=== PATIENT | female | born 1985 | race American Indian/Alaskan Native ===

== ENCOUNTER 2018-04-15 03:09 | Emergency (ER) | payer MEDICAID, SELFPAY ==
[2018-04-15 03:20] VITALS: BP 120/77; PULSE 80; RESP 18; TEMP 36.2; O2SAT 99; BMI 29.0
--- NOTE | 2018-04-15 03:27 | ED_ITS ---
HPI - Dental/Oral General Chief complaint: Dental/Oral Stated complaint: left top molar pain Time Seen by Provider: 04/15/18 03:19 Source: patient Mode of arrival: ambulatory Limitations: no limitations History of Present Illness HPI Narrative: Patient is a 33-year-old female who presents with left upper molar dental pain and swelling. She says the swelling started today but he has had pain for about a day and half. No fevers or chills. She says the tooth was cracked about 2013. She is also seeing a dentist about her weight teeth she unfortunately cannot get into her dentist until next week. MD Complaint: tooth pain 2 1. Pain 2. Extra tooth Relieving factors: nothing Exacerbating factors: nothing Related Data Home Medications Medication Instructions Recorded Confirmed levetiracetam 250 mg BID 04/15/18 04/15/18 Previous Rx's Medication Instructions Recorded clindamycin HCl 300 mg PO TID #21 cap 04/15/18 Allergies Allergy/AdvReac Type Severity Reaction Status Date / Time BEE,BUMBLE Allergy Unknown SWELLING Uncoded 07/22/17 12:55 Penicillin Allergy Unknown Uncoded 07/22/17 12:55 Review of Systems Review of Systems GENERAL: Denies chills,fever HEENT: See HPI RESPIRATORY: Denies dyspnea, cough, wheezing CARDIOVASCULAR: Denies chest pain, palpitations GASTROINTESTINAL: Denies nausea, vomiting MUSCULOSKELETAL: Denies extremity pain, injury SKIN: No rash, no laceration, no pruritus NEUROLOGIC: Denies weakness, dizziness, headache, numbness 8 point review of systems is negative except for those stated above and HPI PFSH Surgical History Status post appendectomy Status post tonsillectomy and adenoidectomy Social History Smoking Status: Never smoker Exam Initial Vital Signs Initial Vital Signs: Vital Signs Temperature 97.2 F L 04/15/18 03:20 Pulse Rate 80 04/15/18 03:20 Respiratory Rate 18 04/15/18 03:20 Blood Pressure 120/77 04/15/18 03:20 Pulse Oximetry 99 04/15/18 03:20 GENERAL: Well-appearing, well-nourished and in no acute distress. CARDIOVASCULAR: peripheral pulses in tact, cap refill <2 sec RESPIRATORY: No respiratory distress, speaks in full sentences without difficulty EXTREMITIES: Normal range of motion, no clubbing or edema. Neurovascularly intact NEUROLOGICAL: Cranial nerves II through XII grossly intact. Normal gait and speech. SKIN: Warm, dry, no petechiae, no rashes or lesions. HENMT Teeth and gingiva: caries and poor dentition Course Orders Ordered: Discontinued Medications Clindamycin HCl (Cleocin) 300 mg PO NOW ONE Stop: 04/15/18 03:25 Last Admin: 04/15/18 03:28 Dose: 300 mg Vital Signs - 8 hr 04/15/18 03:20 Temperature 97.2 F L Pulse Rate 80 Respiratory Rate 18 Blood Pressure 120/77 Pulse Oximetry 99 Discharge Plan Departure Patient Disposition: Home Clinical Impression: Pain, dental Discharge Date/Time: 04/15/18 03:48 Interventions: ED Discharge Assessment Last Done: 04/15/18 03:48 Instructions: DI for Dental Pain Activity Restrictions/Additional Instructions: *You have been diagnosed with dental pain *Continue to take medications as directed Clindamycin 300 mg 3 times a day for 7 days *Follow up with your primary care provider in 2-3 days, call your dentist tomorrow to schedule appointment as soon as possible *Return to ER if you should have increasing facial swelling, difficulty breathing, inability to swallow or any new, worsening or concerning symptoms Prescriptions: New clindamycin HCl 300 mg capsule 300 mg PO TID Qty: 21 RF: 0 No Action levetiracetam 250 mg Tablet 250 mg BID RF: 0
[2018-04-15] MEDS: CLINDAMYCIN 150 MG CAPSULE 300 MG PO (03:28)
== END 2018-04-15 03:48 | disposition home or self-care (01) ==
PROVIDERS: Emergency Provider Emergency Medicine
DX: K08.89 Other specified disorders of teeth and supporting structures (principal)
CPT/HCPCS: 99282; 99283

== ENCOUNTER → 2018-09-07 14:41 | Outpatient (CLI) | payer OTHER, SELFPAY ==
[2018-09-07 15:13] LABS: Add Manual Diff / Slide Review NO; Basophils Absolute Auto 100 /uL (0-100); Basophils Percent Auto 0.8 % (0-2); Eosinophils Absolute Auto 200 /uL (0-450); Eosinophils Percent Auto 2.5 % (2-4); Hematocrit 35.7 % (36-46); Lymphocytes Absolute Auto 2000 /uL (1100-4500); Lymphocytes Percent Auto 19.9 % (25-40); Mean Corpuscular HGB Conc 33.6 % (30-36); Mean Corpuscular Hemoglobin 25.2 PG (26-34); Mean Corpuscular Volume 75.1 fL (80-100); Monocytes Absolute Auto 600 /uL (0-900); Monocytes Percent Auto 6.3 % (3-14); Neutrophils Absolute Auto 7000 /uL (1500-7000); Neutrophils Percent Auto 70.5 % (50-75); Platelet Count 259 X10^3/uL (150-400); Red Blood Cell Count 4.76 X10^6/uL (4.0-5.2); Red Cell Distribution Width 26.9 % (11.6-14.8); White Blood Cell Count 9.8 X10^3/uL (4.5-11.0)
[2018-09-07 15:14] LABS: Appearance Urine UA SL CLOUDY; Bilirubin Urine UA NEGATIVE (NEGATIVE); Color Urine UA YELLOW; Glucose Urine UA NEGATIVE (Negative); Ketones Urine UA NEGATIVE (NEGATIVE); Leukocyte Esterase Urine UA TRACE (NEGATIVE); Nitrite Urine UA NEGATIVE (Negative); Occult Blood Urine UA NEGATIVE (Negative); Protein Urine UA NEGATIVE (Negative); Specific Gravity Urine UA 1.025 (1.000-1.035); Urobilinogen Urine UA 0.2 E.U./dL (0.2)
[2018-09-07 15:36] LABS: Bacteria Urine Moderate (10-30); Culture Indicated Urine Cult Not Indicated; Mucus Urine 2+ (Negative); RBC Urine 0-1/HPF (0-5/HPF); Squamous Epithelial Cell Urine 10-30 /HPF (0-5/HPF); WBC Urine 1-5/HPF (0-5/HPF)
[2018-09-07 15:50] LABS: Anisocytosis 2+; Poikilocytosis 1+
[2018-09-07 15:51] LABS: Hypochromasia 1+; Ovalocytes 1+; Target Cells 1+
[2018-09-07 17:30] LABS: Hepatitis B Surface Antigen NEGATIVE s/c (NEGATIVE); Rubella Antibody IgG 31.7 IU/mL (>15)
[2018-09-07 18:18] LABS: HIV 1 and 2 Antibody NEGATIVE (NEGATIVE); Hep C Virus Ab w/Reflex Quant NEGATIVE s/c (NEGATIVE)
[2018-09-09 13:27] LABS: RPR Screen Nonreactive (Nonreactive)
[2018-09-10 09:56] LABS: AFP, Serum 85.8 ng/mL; Calc Gestational Age 15.3; Cigarette Smoker N; Donated Egg NOT GIVEN; Donor Egg Age NOT GIVEN; Estriol, Free 0.55 ng/mL; Inhibin A, Dimeric 195 pg/mL; Maternal Weight 203 lbs; Number of Fetuses NOT GIVEN; Previous Pregnancy Down Syndro NOT GIVEN; hCG, MoM 1.17; hCG, Serum 40.3 IU/mL
== END ==
PROVIDERS: Visit Provider Obstetrics & Gynecology
DX: Z34.81 Encounter for supervision of other normal pregnancy, first trimester (principal); Z3A.15 15 weeks gestation of pregnancy
CPT/HCPCS: 36415; 80055; 81003; 81015; 82105; 82677; 84702; 86336; 86703; 86787; 86803; 86850; 86900; 86901; 87086

== ENCOUNTER → 2018-10-11 13:50 | Outpatient (CLI) | payer OTHER, SELFPAY ==
--- NOTE | 2018-10-11 13:54 | DI.US.S_ITS ---
PROCEDURE: US OB >= 14 WEEKS FETUS INDICATIONS: ANATOMY SURVEY OUTSIDE/PRIOR DATING DATA: Last menstrual period (LMP): 05/23/18. LMP-based estimated date of delivery (JOAN): 02/27/19. First dating scan (date and location): 08/09/18. Estimated date of delivery (JOAN) from first dating scan: 03/01/19. TECHNIQUE: Real-time scanning was performed of the fetus, with image documentation and biometric measurements. Endovaginal scanning: Not performed COMPARISON: [facility], , OB <= 14 WEEKS FETUS, 08/09/2018, 13:31. FINDINGS: General: A single living intrauterine gestation is present. Presentation: Breech. Placenta: Placental position is left posterior, without previa. There is suggestion of multiple placental lacuna, suspicious for placenta accreta. Amniotic fluid index: 16.5 cm, normal range is 5-24 cm. heart rate: 162 beats per minute. Maternal cervical canal: 3.7 cm long. Normal lower limit is 2.5 cm. biometrics: Biparietal diameter: 4.5 cm, 19 weeks 5 days Head circumference: 17.3 cm, 19 weeks 6 days Abdominal circumference: 15.4 cm, 20 weeks 4 days Femur length: 3.5 cm, 21 weeks zero days Estimated gestational age from initial scan: 19 weeks 6 days Composite gestational age from present scan: 20 weeks 4 days Estimated weight and percentile: 368 g, 87th percentile Measurement variability for biometric dating: +/- 7 days from 14 weeks to 15 weeks 6 days gestation, +/- 10 days from 16 weeks to 21 weeks 6 days gestation, +/- 2 weeks from 22 weeks to 27 weeks 6 days gestation, +/- 3 weeks for 28 weeks gestation or later. weight reference: 4500 g or EFW >90/95% is considered macrosomia or large for gestational age. EFW <10% is small for gestational age. EFW 5% or less is considered intra-uterine growth restriction. Anatomic survey: Neuro: Ventricles are non-dilated at less than 10 mm. Cisterna magna is normal at 3-11 mm. Cerebellum is normal in size and morphology. Nuchal skin fold: Normal at less than 6 mm between 14-21 weeks gestational age. Face: Nose and lips, facial profile are normal. Spine: No evidence for spina bifida. Heart: 4-chambered heart is present, with normal ventricular outflow tracts although these are suboptimally visualized due to lie. Diaphragm: Diaphragm is intact. Stomach: Left-sided stomach is present. Kidneys: No hydronephrosis. Normal is less than 5 mm in 2nd trimester, less than 7 mm in 3rd trimester. Cord: 3-vessel cord has orthotopic insertion. Bladder: Normal in size. Extremities: All 4 extremities identified. Bilateral maternal renal pelviectasis presumably related IMPRESSION: Single living intrauterine fetus in breech presentation demonstrating appropriate interval growth. Multiple placental vascular lakes, suspicious for placenta accreta. Mild bilateral maternal pelviectasis, presumably related. Dictated by: Matthias Pretty M.D. on 10/11/2018 at 17:16 Approved by: Matthias Pretty M.D. on 10/11/2018 at 17:26
== END ==
PROVIDERS: Visit Provider Obstetrics & Gynecology
DX: Z34.82 Encounter for supervision of other normal pregnancy, second trimester (principal); Z3A.19 19 weeks gestation of pregnancy
CPT/HCPCS: 76811

== ENCOUNTER → 2018-11-15 15:02 | Outpatient (CLI) | payer MEDICAID, OTHER, SELFPAY ==
[2018-11-15 16:28] LABS: Hematocrit 38.5 % (36-46); Hemoglobin 12.8 g/dL (12.0-16.0)
[2018-11-15 16:40] LABS: GTT (PREG) 1 Hour PP 50gm Dose 116 mg/dL (76-139)
== END ==
PROVIDERS: Visit Provider Obstetrics & Gynecology
DX: Z34.82 Encounter for supervision of other normal pregnancy, second trimester (principal); Z3A.25 25 weeks gestation of pregnancy
CPT/HCPCS: 36415; 82950; 85014; 85018

== ENCOUNTER → 2019-01-24 14:59 | Outpatient (CLI) | payer MEDICAID, OTHER, SELFPAY ==
[2019-01-25 20:53] LABS: Strep Grp B PCR NEG for Grp B Strep
== END ==
PROVIDERS: Visit Provider Obstetrics & Gynecology
DX: Z34.83 Encounter for supervision of other normal pregnancy, third trimester (principal)
CPT/HCPCS: 87653

== ENCOUNTER 2019-02-27 11:16 | Observation (INO) | payer MEDICAID, OTHER, SELFPAY | END 2019-02-27 14:32 | disposition home or self-care (01) | LOC: LABOR 11:18 | PROVIDERS: Admitting Provider Obstetrics & Gynecology; Visit Provider Obstetrics & Gynecology | DX: Z34.83 Encounter for supervision of other normal pregnancy, third trimester (principal); Z3A.39 39 weeks gestation of pregnancy | CPT/HCPCS: G0378; G0379 ==

== ENCOUNTER 2019-02-27 18:39 | Inpatient (IN) | payer MEDICAID, OTHER, SELFPAY ==
[2019-02-27 20:44] VITALS: BP 117/64
[2019-02-27 22:33] LABS: Add Manual Diff / Slide Review NO; Basophils Absolute Auto 100 /uL (0-100); Basophils Percent Auto 1.2 % (0-2); Eosinophils Absolute Auto 200 /uL (0-450); Eosinophils Percent Auto 2.1 % (2-4); Hematocrit 41.3 % (36-46); Hemoglobin 14.3 g/dL (12.0-16.0); Lymphocytes Absolute Auto 1900 /uL (1100-4500); Lymphocytes Percent Auto 23.3 % (25-40); Mean Corpuscular HGB Conc 34.6 % (30-36); Mean Corpuscular Hemoglobin 28.5 PG (26-34); Mean Corpuscular Volume 82.4 fL (80-100); Monocytes Absolute Auto 600 /uL (0-900); Monocytes Percent Auto 7.6 % (3-14); Neutrophils Absolute Auto 5500 /uL (1500-7000); Neutrophils Percent Auto 65.8 % (50-75); Platelet Count 148 X10^3/uL (150-400); Red Blood Cell Count 5.01 X10^6/uL (4.0-5.2); Red Cell Distribution Width 14.4 % (11.6-14.8); White Blood Cell Count 8.3 X10^3/uL (4.5-11.0)
[2019-02-28] MEDS: OXYTOCIN PREMIX 30 UNIT/500 ML PLAST..BAG IV (11:30)
[2019-02-28] MEDS: LACTATED RINGERS 1,000 ML 100 ML IV (11:30)
[2019-02-28] MEDS: DERMOPLAST SPRAY 20% 60 ML 1 SPRAY TOP (15:44)
[2019-02-28] MEDS: KETOROLAC 30 MG/ML VIAL IV (18:05)
[2019-03-01] MEDS: IBUPROFEN 600 MG TABLET PO ×3 (02:20→14:17)
[2019-03-01] MEDS: DOCUSATE 100 MG CAPSULE PO (08:31)
[2019-03-01 13:53] VITALS: BP 122/77; PULSE 73; RESP 16; TEMP 36.3
--- NOTE | 2019-03-07 08:42 | PM.OBHP.1 ---
OB HPI Date/Time Date of admission: 02/27/19 Date Patient Seen: 02/28/19 Time Patient Seen: 07:30 History of Present Condition Chief complaint: maternity : 5 Para: 2 Estimated Date of Delivery: 02/27/19 Estimated Gestational Age (weeks): 40+ 1 Narrative: Nohemy Villalba is a 34 year old female 5 para 2 who presented at 40 weeks gestation in labor History of Present care: good care, initiated at week # (10), number of visits (11) and pounds weight gain (44) Dating criteria: LMP confirmed by 1st trimester US Ultrasounds: normal 1st trimester US and normal mid trimester US Obstetrical complications: other (Increased risk open neural tube defect, saw Maternal- Medicine.) Medical complications: none Preadmission Labs Blood type: A (+) positive -: Antibody screen: negative, GBS status: negative, HBsAG: negative, HIV: negative and RPR/VDLR: negative -: Chlamydia screen: not detected -: Rubella: immune and Varicella: immune HCT: 38.5 HCAB: negative PAP: Normal Quad screen: Normal Urine: No growth 1 hr GTT: 116 Prior (ies) History: 2 EAB Ectopic Evaluation Evaluation Baseline heart rate: 140 Variability: Moderate (11-25) monitor accelerations: Present monitor decelerations: Absent Contraction Frequency (minutes): 6 Uterine Contraction Intensity: Moderate Cervical dilation (cm): 4 Cervical effacement (%): 80 station: -1 Laboratory results: Laboratory Tests 02/27/19 02/27/19 22:18 22:18 WBC 8.3 RBC 5.01 Hgb 14.3 Hct 41.3 MCV 82.4 MCH 28.5 MCHC 34.6 RDW 14.4 Plt Count 148 L Neut % (Auto) 65.8 Lymph % (Auto) 23.3 L [place] % (Auto) 7.6 Eos % (Auto) 2.1 Baso % (Auto) 1.2 Neut # (Auto) 5500 Lymph # (Auto) 1900 [place] # (Auto) 600 Eos # (Auto) 200 Baso # (Auto) 100 Blood Type A Positive Antibody Screen Negative [facility] Medical History (Updated 01/11/19 @ 12:00 by Evette Hernandes MD) Anemia (Chronic ~2017) Asthma (Chronic ~1999) Surgical History (Updated 09/05/18 @ 15:14 by Renetta Mccord) Anesthesia (Resolved) Ectopic (Resolved ~2009) Status post appendectomy (~2011) Status post tonsillectomy and adenoidectomy Family History (Updated 09/05/18 @ 15:15 by Renetta Mccord) Father Diabetes mellitus Mother Hypertension Social History Smoking Status: Never smoker Meds Home Medications and Allergies Home Medications Medication Instructions Recorded Confirmed Type No Known Home Medications 02/27/19 02/27/19 History Allergies Allergy/AdvReac Type Severity Reaction Status Date / Time bee venom protein (honey bee) Allergy Severe SWELLING Verified 03/01/19 08:08 Penicillins Allergy Unknown Verified 03/01/19 08:08 Exam Vital Signs (past 8 hours): Generally: Patient in moderate distress secondary to contractions Lungs: Clear to auscultation bilaterally Cardiovascular: Regular rate and rhythm Abdomen: Soft Fundal height: 41 cm Estimated weight: 7-1/2 lb Extremities: Trace edema, 1+ DTRs Objective Labs Result Diagrams: 02/27/19 22:18 Assessment and Plan Assessment and Plan Assessment and Plan narrative: Assessment: 34-year-old 5 para 2 at 40-,1/7 weeks gestation in early active labor Plan: Pitocin augmentation Artificial rupture of membranes with copious amounts of clear amniotic fluid Epidural as necessary Expected management to spontaneous vaginal delivery Time Spent with Patient Total time spent with greater than 50% in coordination of care (as documented) at patient's floor/unit and/or counseling patient:: 15-24 minutes
--- NOTE | 2019-03-07 08:49 | PM.OBPRVD ---
Labor & Delivery Delivery date: 02/28/19 Intrapartal events: Prolonged Labor > 20 hours Cervical ripening method: none Induction method: none Delivery augmentation: rupture of membranes and pitocin Delivery monitor: external FHT and external uterine Route of delivery: Episiotomy description: None L&D Laceration Description: Perineal - 2nd Degree Delivery repair: vicryl and chromic Estimated blood loss (mL): 100 Anesthesia type: Local Complications: None Narrative: Patient complete and pushed for 7 minutes. At 11:34 a.m., a live female infant delivered spontaneously over an intact perineum. No nuchal cord. The remainder of the body delivered without difficulty and was placed on mom's abdomen. Once the cord stopped pulsing it was double clamped and cut. Cord bloods were obtained. The placenta delivered intact with a 3 vessel cord at 11:40 a.m.. Removed Pitocin was given in the IV fluids prior to placental delivery. The fundus was massaged to firm. There was a second-degree perineal laceration which was repaired in the usual fashion. Hemostasis was achieved. Apgars 9 at 1 minute and 9 at 5 minutes. Weight 8 lb 2.5 oz. No analgesia except for local for repair. . Estimated blood loss 100 cc. Mom and infant stable to recovery. Plan for aftercare: To routine care
--- NOTE | 2019-03-07 08:53 | P.DS_ITS ---
Discharge Providers Provider Date of admission: 02/27/19 18:39 Discharge Date: 03/01/19 Consults: 03/01/19 12:19 Consult to Senior Administrative Associate Routine Comment: Discharge provider: Evette Hernandes MD Summary Hospital Course Date Patient Seen: 03/01/19 Time Patient Seen: 13:30 Procedures: Spontaneous vaginal delivery Second-degree laceration repair Pitocin augmentation of labor Artificial rupture of membranes Hospital Course: Patient is a 34-year-old 5 para 3 who presented on February 27, 2019 in early active labor. On the morning of February 28, 2019 she was augmented with Pitocin and artificial rupture of membranes were performed. She had a spontaneous vaginal delivery without complication. Her course was unremarkable and she was discharged home on post day # 1. Peripartum Data Infant Delivery Method: Natural Vaginal Laceration description: Vaginal - 2nd Degree Procedures: Spontaneous vaginal delivery Second-degree laceration repair Pitocin augmentation of labor Artificial rupture of membranes complications: none Status at Discharge Cognitive/behavioral status at discharge: oriented Functional status at discharge: independent ambulation Overall status at discharge: patient is progressing back to baseline Time Spent with Patient Time attestation: Total time spent providing and/or coordinating discharge services: Time spent: Less than 30 minutes Objective Labs Result Diagrams: 02/27/19 22:18 Exam Vital Signs (past 8 hours): Generally: Sitting up in bed, , no acute distress Fundus: Firm at U -1 Extremities: Trace edema, 1+ DTRs, negative Homans Discharge Plan Discharge Plan Patient Disposition: Home Discharge comment: Call with fever, chills or bleeding vaginally more than a pad in an hour Discharge orders & Medications Prescriptions: Continued No Known Home Medications RF: 0 Follow up/Referrals: Evette Hernandes MD [Physician] - 6 Weeks (Check with Dr. Hernandes's office to find out when they scheduled your follow up appointment.) Diet/Activity/Treatments Diet: Regular Activity: No intercourse Skin/Wound/Dressing Care Report to your healthcare provider any signs of infection, such as:: chills, fever, increased pain and unusual drainage Visit Report/Discharge Packet Instructions: DI for Labor and Delivery, Vaginal Stand Alone Forms: Discharge: Care Discharges patient from system. Discharge Date/Time: 03/01/19 15:25
== END 2019-03-01 15:25 | disposition home or self-care (01) | DRG 806 ==
PROVIDERS: Admitting Provider Obstetrics & Gynecology; Visit Provider Obstetrics & Gynecology
DX: O48.0 Post-term pregnancy (principal); O63.9 Long labor, unspecified; Z37.0 Single live birth; Z3A.40 40 weeks gestation of pregnancy; O70.1 Second degree perineal laceration during delivery
CPT/HCPCS: 36415; 59050; 59410; 85025; 86850; 86900; 86901; G0378; G0379; J1885; J2590

== ENCOUNTER → 2021-10-22 15:13 | Outpatient (CLI) | payer MEDICAID, OTHER, SELFPAY ==
[2021-10-22 15:59] LABS: Add Manual Diff / Slide Review NO; Basophils Absolute Auto 0 /uL (0-100); Basophils Percent Auto 0.5 % (0-2); Eosinophils Absolute Auto 100 /uL (0-450); Eosinophils Percent Auto 1.2 % (2-4); Hematocrit 40.8 % (36-46); Hemoglobin 14.1 g/dL (12.0-16.0); Lymphocytes Absolute Auto 2100 /uL (1100-4500); Mean Corpuscular HGB Conc 34.5 % (30-36); Mean Corpuscular Hemoglobin 27.5 PG (26-34); Mean Corpuscular Volume 79.5 fL (80-100); Monocytes Absolute Auto 500 /uL (0-900); Monocytes Percent Auto 5.1 % (3-14); Neutrophils Absolute Auto 6500 /uL (1500-7000); Neutrophils Percent Auto 70.2 % (50-75); Platelet Count 271 X10^3/uL (150-400); Red Blood Cell Count 5.13 X10^6/uL (4.0-5.2); Red Cell Distribution Width 14.4 % (11.6-14.8); White Blood Cell Count 9.2 X10^3/uL (4.5-11.0)
[2021-10-22 17:52] LABS: Hepatitis B Surface Antigen NEGATIVE s/c (NEGATIVE); Rubella Antibody IgG 19.8 IU/mL (>15)
[2021-10-22 18:14] LABS: HIV 1 & 2 Ab/Ag 4th Gen Combo NEGATIVE (NEGATIVE); Hep C Virus Ab w/Reflex Quant NEGATIVE s/c (NEGATIVE)
[2021-10-23 07:39] LABS: RPR Screen Non Reactive (Non Reactive)
[2021-10-23 10:42] LABS: Varicella IgG Antibody 303 index (Immune >165)
== END ==
PROVIDERS: Referring Provider Obstetrics & Gynecology; Visit Provider Obstetrics & Gynecology
DX: Z34.81 Encounter for supervision of other normal pregnancy, first trimester (principal)
CPT/HCPCS: 36415; 80055; 86787; 86803; 86850; 86900; 86901; 87389

== ENCOUNTER → 2021-12-17 14:04 | Outpatient (CLI) | payer MEDICAID, OTHER, SELFPAY ==
[2021-12-17 17:35] LABS: Appearance Urine UA CLEAR; Bilirubin Urine UA NEGATIVE (NEGATIVE); Color Urine UA YELLOW; Glucose Urine UA NEGATIVE (Negative); Ketones Urine UA NEGATIVE (NEGATIVE); Leukocyte Esterase Urine UA NEGATIVE (NEGATIVE); Nitrite Urine UA NEGATIVE (Negative); Occult Blood Urine UA 2+ (Negative); Protein Urine UA NEGATIVE (Negative); Urobilinogen Urine UA 0.2 E.U./dL (0.2)
[2021-12-17 17:46] LABS: RBC Urine None Seen (0-5/HPF); Squamous Epithelial Cell Urine 0-1 /HPF (0-5/HPF); WBC Urine None Seen (0-5/HPF)
[2021-12-17 17:47] LABS: Bacteria Urine None Seen; Calcium Oxalate Crystals Urine Moderate
== END ==
PROVIDERS: Visit Provider Obstetrics & Gynecology
DX: Z34.81 Encounter for supervision of other normal pregnancy, first trimester (principal)
CPT/HCPCS: 81003; 81015; 87086

== ENCOUNTER → 2021-12-17 14:26 | Outpatient (CLI) | payer MEDICAID, OTHER, SELFPAY ==
[2021-12-19 21:25] LABS: AFP Value 58.9 ng/mL (.); Gest Age on Col Date 18.6 weeks (.); Insulin Dep Diabetes No (.); OSBR Risk 1IN 2331 (.); Results Report (.); Test Results *Screen Negative* (.)
== END ==
PROVIDERS: Referring Provider Obstetrics & Gynecology; Visit Provider Obstetrics & Gynecology
DX: Z34.82 Encounter for supervision of other normal pregnancy, second trimester (principal); Z3A.18 18 weeks gestation of pregnancy
CPT/HCPCS: 36415; 81003; 81015; 82105; 87086

== ENCOUNTER → 2021-12-30 14:07 | Outpatient (CLI) | payer MEDICAID, OTHER, SELFPAY ==
--- NOTE | 2021-12-30 14:08 | DI.US.S_ITS ---
PROCEDURE: US OB >= 14 WEEKS FETUS INDICATIONS: ANATOMY OUTSIDE/PRIOR DATING DATA: Last menstrual period (LMP): 08/09/2021 LMP-based estimated date of delivery (JOAN): 05/16/2022 First dating scan (date and location): 10/22/2021 Estimated date of delivery (JOAN) from first dating scan: 05/12/2022 TECHNIQUE: Real-time scanning was performed of the fetus, with image documentation and biometric measurements. Endovaginal scanning: Not performed today COMPARISON: 10/22/2021 [facility], , OB >= 14 WEEKS FETUS, 12/20/2018, 17:10. FINDINGS: General: A single living intrauterine gestation is present. Presentation: Vertex Placenta: Posterior, without previa Amniotic fluid index: 15.6 centimeters heart rate: 133 beats per minute Maternal cervical canal: 3 centimeters biometrics: Biparietal diameter: 4.6 centimeters Head circumference: 18.1 centimeters Abdominal circumference: 16.7 centimeters Femur length: 3.7 centimeters Clinically estimated gestational age: 20 weeks and 3 days Composite gestational age from present scan: 21 weeks Estimated weight and percentile: 433 grams, 95th percentile. Anatomic survey: Neuro: Ventricles are non-dilated at less than 10 mm. Cisterna magna and cerebellum are not well seen. Nuchal skin fold: Not well seen Face: Nose and lips, facial profile are normal. Spine: No evidence for spina bifida. Heart: 4-chambered heart is present, with normal ventricular outflow tracts. Diaphragm: Diaphragm is intact. Stomach: Left-sided stomach is present. Kidneys: Renal pelvises bilaterally measure 4 and 5 millimeters. Cord: 3-vessel cord has orthotopic insertion. Bladder: Normal in size. Extremities: All 4 extremities identified. IMPRESSION: Living intrauterine gestation at 20 weeks and 3 days. biometry is concordant, with estimated weight slightly larger than expected at the 95th percentile. Nuchal skin fold, cisterna magna, and cerebellum were not well seen. Bilateral renal pelviectasis (UTD A1). Follow-up imaging is suggested. We strive to produce accurate, complete, and clear reports of imaging services. To assist us in improving patient care, this report was composed using standard report templates and voice recognition software. Therefore, it may contain abnormal punctuation, insertions and/or omissions. Occasional wrong-word or sound-alike substitutions may occur. Though we review the report and make efforts to correct it, we do recommend that the report be read carefully in proper context to recognize any text inaccuracies. Dictated by: Fabian Regalado M.D. on 12/30/2021 at 17:13 Approved by: Fabian Regalado M.D. on 12/30/2021 at 17:20
== END ==
PROVIDERS: Referring Provider Physician Assistant Medical; Visit Provider Physician Assistant Medical
DX: Z34.82 Encounter for supervision of other normal pregnancy, second trimester (principal); Z3A.20 20 weeks gestation of pregnancy
CPT/HCPCS: 76811

== ENCOUNTER → 2022-01-03 15:10 | Outpatient (CLI) | payer MEDICAID, OTHER, SELFPAY ==
--- NOTE | 2022-01-03 15:10 | DI.US.S_ITS ---
PROCEDURE: US OB FOLLOW UP INDICATIONS: FU anatomy scan OUTSIDE/PRIOR DATING DATA: Last menstrual period (LMP): 08/09/2021 LMP-based estimated date of delivery (JOAN): 05/16/2022. First dating scan (date and location): 10/22/2021. Estimated date of delivery (JOAN) from first dating scan: 05/12/2022. TECHNIQUE: Real-time scanning was performed of the fetus, with image documentation and biometric measurements. COMPARISON: [facility], , OB >= 14 WEEKS FETUS, 12/30/2021, 14:33. FINDINGS: General: A single living intrauterine gestation is present. Presentation: Breech. Placenta: Placental position is posterior , without previa. Amniotic fluid index: 10.5 cm, normal range is 5-24 cm. Single deepest vertical pocket is 2.8 cm. heart rate: 165 beats per minute. Maternal cervical canal: 3.6 cm long. Normal lower limit is 2.5 cm. Clinically estimated gestational age: 21 weeks Other: Nuchal fold appears thickened at 9.8 mm. Cerebellum and cisterna magna again not well seen. IMPRESSION: 1. Single living IUP redemonstrated. 2. Mild thickening of the nuchal fold 9.8 mm. 2. Cisterna magna and cerebellum not well visualized. We strive to produce accurate, complete, and clear reports of imaging services. To assist us in improving patient care, this report was composed using standard report templates and voice recognition software. Therefore, it may contain abnormal punctuation, insertions and/or omissions. Occasional wrong-word or sound-alike substitutions may occur. Though we review the report and make efforts to correct it, we do recommend that the report be read carefully in proper context to recognize any text inaccuracies. Dictated by: Burak POTTS Interpreted: Fabian Regalado MD on 01/03/2022 at 16:15 Transcribed by: SONYA on 01/03/2022 at 16:23 Approved by: Fabian Regalado M.D. on 01/03/2022 at 17:11
== END ==
PROVIDERS: Referring Provider Obstetrics & Gynecology; Visit Provider Obstetrics & Gynecology
DX: Z3A.21 21 weeks gestation of pregnancy; Z36.2 Encounter for other antenatal screening follow-up
CPT/HCPCS: 76816

== ENCOUNTER → 2022-02-08 10:39 | Outpatient (CLI) | payer MEDICAID, OTHER, SELFPAY ==
[2022-02-08 12:10] LABS: Hematocrit 37.2 % (36-46); Hemoglobin 12.9 g/dL (12.0-16.0)
[2022-02-08 13:49] LABS: GTT (PREG) 1 Hour PP 50gm Dose 157 mg/dL (76-139)
== END ==
PROVIDERS: Referring Provider Obstetrics & Gynecology; Visit Provider Obstetrics & Gynecology
DX: Z34.82 Encounter for supervision of other normal pregnancy, second trimester (principal); Z3A.26 26 weeks gestation of pregnancy
CPT/HCPCS: 36415; 82950; 85014; 85018

== ENCOUNTER → 2022-03-05 07:55 | Outpatient (CLI) | payer MEDICAID, OTHER, SELFPAY ==
[2022-03-05 10:22] LABS: Glucose 1 Hour Gest 168 mg/dL (76-180)
[2022-03-05 10:23] LABS: Glucose Fasting Gestational 82 mg/dL (76-95)
[2022-03-05 10:55] LABS: Glucose 2 Hour Gest 119 mg/dL (76-155)
[2022-03-05 11:10] LABS: Glucose Tol Interp,Gestational INTERPRETATION
[2022-03-05 13:20] LABS: Glucose 3 Hour Gest 52 mg/dL (76-140)
== END ==
PROVIDERS: Referring Provider Obstetrics & Gynecology; Visit Provider Obstetrics & Gynecology
DX: O99.810 Abnormal glucose complicating pregnancy (principal)
CPT/HCPCS: 36415; 82951; 82952

== ENCOUNTER → 2022-04-29 16:05 | Outpatient (CLI) | payer MEDICAID, OTHER, SELFPAY ==
[2022-04-30 15:32] LABS: Strep Grp B PCR NEG for Grp B Strep
== END ==
PROVIDERS: Visit Provider Obstetrics & Gynecology
DX: Z34.83 Encounter for supervision of other normal pregnancy, third trimester (principal); Z3A.37 37 weeks gestation of pregnancy
CPT/HCPCS: 87653

== ENCOUNTER 2022-05-14 03:15 | Inpatient (IN) | payer MEDICAID, OTHER, SELFPAY ==
[2022-05-14 03:25] VITALS: BP 124/74
--- NOTE | 2022-05-14 04:44 | P.HPOB_ITS ---
OB HPI Date/Time Date of admission: 05/14/22 Date Patient Seen: 05/14/22 Time Patient Seen: 04:44 History of Present Condition Chief complaint: Labor JOAN Calculator Estimated Delivery Date Method Current WG Current Estimate 05/16/22 LMP (Certain) 39w 5d Other Estimates 05/13/22 Ultrasound #1 40w 1d Estimated Gestational Age (weeks): 39.5 : 6 Para: 3 Narrative: 37YO @ 39wks5 days by LMP and early US presents for evaluation of labor. Began nella at 10am yesterday. Contractions have been stronger and 5-6 minutes apart since 0200. Now tearful and breathing through strong contractions every 4-5 minutes. Has noticed some bloody show. No leaking of fluid. Routine care with . Planning unmedicated . is present and supportive. care: good care, initiated at week # (10), number of visits (10) and pounds weight gain (20) Dating criteria OB: LMP confirmed by 1st trimester US Ultrasounds: normal mid trimester US Obstetrical complications: none Preadmission Labs Last OB Lab Results: Blood Type A Positive 10/22/21 15:23 Antibody Screen Negative 10/22/21 15:23 Hematocrit 37.2 % (36-46) 02/08/22 11:45 Hemoglobin 12.9 g/dL (12.0-16.0) 02/08/22 11:45 Hepatitis B Surface Antigen Negative s/c (NEGATIVE) 10/22/21 15 :23 Hepatitis C Antibody Negative s/c (NEGATIVE) 10/22/21 15:23 Rubella Antibody 19.8 IU/mL (>15) 10/22/21 15:23 Varicella-Zoster IgG Antibody 303 index (Immune >165) 10/22/21 15:23 Glucose 1 Hour 157 mg/dL (76-139) H 02/08/22 11:45 Group B Streptococcus (PCR) Neg for grp b strep 04/29/22 16:05 Glucose Tolerance Testing: Fasting (82), 1 hr (168), 2 hr (119) and 3 hr (52) -: Chlamydia screen: negative and Gonorrhea screen: negative -: PAP smear: Normal Genetic Screens: Cell-free DNA: Normal and Alpha-fetoprotein: Normal Prior (ies) Past Pregnancies Del. Date GA/Weeks Labor Lgth Wt Sex Route Outcome Anesthesia Place Delv Breastfeed Preg Comp Name 10/11/03 6? elective 02/22/06 40 8 3.374 kg Female vaginal live - full term [facility] 2 years none [place] 08/12/11 9 ectopic IH 06/04/14 40 20 2.637 kg Female vaginal live - full term IH 2 years hemorrhage Ar[place] 02/28/19 40 11 3.77 kg Female vaginal live - full term I H 2 years none [place] Delivery Date: 10/11/03 Last Updated by: Citlali Granados, NEHEMIAH D&C Evaluation Evaluation Baseline heart rate: 135 Variability: Moderate (11-25) monitor accelerations: Present Monitor Decelerations: Absent Contraction Frequency (minutes): 4 Uterine Contraction Intensity: Strong/Firm Status: Category l Dilation (cm): 6 Effacement (%): 90 station: 0 Comments: CE per certified anesthesiologist assistant [facility] Medical History Anemia (~2017) Asthma (~1999) Surgical History Anesthesia Ectopic (~2009) Status post appendectomy (~2011) Status post tonsillectomy and adenoidectomy [place] teeth extracted Family History Father Diabetes mellitus Mother Hypertension Cleft palate Family/Other Epilepsy Family/Other Cleft lip and palate Social History marital status: household members: spouse, family ([id number]) and children lives independently: Yes housing: house pets and animals: Yes (2 dogs) education level: high school occupational status: unemployed current occupational exposures/hazards: No special shira needs: No seatbelt use: always helmet use: Yes water heater temp set < 120 deg: No (will check) working smoke detector in home: Yes fire extinguisher in home: Yes carbon monox detector in home: Yes firearms in home: No do you feel safe at home: Yes Smoking Status: Former smoker (Quit 2005) Tobacco: How many years used: 3 second hand exposure: No (mother and [id number] smoke, but only outdoors and not near pt) alcohol intake: former substance use type: does not use during the past year weight has: other (fluctuates quite a bit) well-balanced diet: daily or most days daily servings fruits/ve-4 caffeine: Yes Type(s) of exercise: walking Meds Home Medications and Allergies Home Medications Medication Instructions Recorded Confirmed Type prenat.vits,chelsie,ppg-[id number] 1 tab PO DAILY 10/07/21 05/13/22 History Allergies Allergy/AdvReac Type Severity Reaction Status Date / Time bee venom protein (honey bee) Allergy Severe Anaphylaxis Verified 05/13/22 08:18 Latex, Natural Rubber Allergy Intermediate Hives Verified 05/13/22 08:18 Penicillins Allergy Intermediate Hives Verified 05/13/22 08:18 Review of Systems Review of Systems ROS: Yes All systems reviewed with the patient and are negative except as otherwise documented OB Exam Vital signs Blood Pressure: 124/74 Pulse Rate: 73 Temperature: 97.9 F Resp Effort & Inspection: normal respiratory effort and able to speak in complete sentences Presentation: vertex Objective Labs 05/14/22 04:45 Assessment and Plan Assessment and Plan Assessment and Plan narrative: A: Term Multipara Active Labor AMA No indication for GBS prophylaxis Cat I FHR P: Admit, routine orders. Expectant management of labor. Labor support, PRN. Anticipate NSVB.
[2022-05-14 04:54] VITALS: BP 124/74; PULSE 73; TEMP 36.6
[2022-05-14 05:07] LABS: Add Manual Diff / Slide Review NO; Basophils Absolute Auto 100 /uL (0-100); Basophils Percent Auto 0.6 % (0-2); Eosinophils Absolute Auto 100 /uL (0-450); Eosinophils Percent Auto 0.7 % (2-4); Hematocrit 40.5 % (36-46); Hemoglobin 13.7 g/dL (12.0-16.0); Lymphocytes Absolute Auto 2100 /uL (1100-4500); Lymphocytes Percent Auto 16.5 % (25-40); Mean Corpuscular Hemoglobin 27.9 PG (26-34); Mean Corpuscular Volume 82.2 fL (80-100); Monocytes Absolute Auto 600 /uL (0-900); Monocytes Percent Auto 5.1 % (3-14); Neutrophils Absolute Auto 9700 /uL (1500-7000); Neutrophils Percent Auto 77.1 % (50-75); Platelet Count 212 X10^3/uL (150-400); Red Blood Cell Count 4.92 X10^6/uL (4.0-5.2); Red Cell Distribution Width 14.1 % (11.6-14.8); White Blood Cell Count 12.6 X10^3/uL (4.5-11.0)
--- NOTE | 2022-05-14 07:54 | PM.OBPNLAB ---
Date/Time Date Patient Seen: 05/14/22 Time Patient Seen: 07:55 Pain Control Pain control: tolerating well Pelvic Exam Dilation (cm): 8 Effacement (%): 100 station: 0 Amniotic membrane status: Intact Contractions Contractions on admission: regular Monitor mode: External Contraction frequency (min): 3 Contraction duration (min): 1 Contraction pattern: Regular Contraction intensity: Strong/Firm Status status: Category l Heart Rate Baseline: 135 Monitor Accelerations: Present Monitor Decelerations: Absent Monitor Variability: Moderate Assessment and Plan Assessment: active labor Comments: AROM with copious clear amniotic fluid Expected management to spontaneous vaginal delivery
[2022-05-14] MEDS: OXYTOCIN PREMIX 30 UNIT/500 ML PLAST..BAG 200 UNIT IV (09:09)
[2022-05-14] MEDS: LIDOCAINE 1% 20 ML (09:11)
--- NOTE | 2022-05-14 09:27 | PM.OBPRVD ---
Labor & Delivery Delivery date: 05/14/22 Intrapartal Events: None Cervical ripening method: none Induction method: none Delivery augmentation: rupture of membranes Delivery monitor: external FHT and external uterine Route of delivery: Episiotomy description: None L&D Laceration Description: Perineal - 1st Degree and Vaginal - 1st Degree Delivery repair: chromic Quantitative Blood Loss: 800 Anesthesia Type: Local (for repair) and None Complications: Mild hemorrhage Narrative: Patient complete and pushed with 3 contractions. At 9:04 a.m., a live male delivered spontaneously in the MELISSA presentation over an intact perineum. No nuchal cord. The remainder of the body delivered without difficulty and was placed on mom's abdomen. Patient began having some brisk bleeding. Pitocin was given in the IV fluids. The cord was double clamped and cut. Cord bloods were obtained. The placenta delivered intact with a three-vessel cord at 9:09 a.m.. Fundus was massaged to firm. A first-degree vaginal/perineal laceration was repaired with 2-0 chromic in the usual fashion. Local analgesia for repair only. Apgars 9 at 1 minute and 9 at 5 minutes. . weight 8 lb 13.3 oz. mom and stable to recovery. [place] Baby 1: gender: Male Presentation: vertex Position: Left Occiput Anterior Placenta delivery description: Spontaneous Cord Vessel Description: 3 Vessels and Clamped/Cut score (1 min): 9 score (5 min): 9 weight: 8 lb 13.3 oz Plan for aftercare: Routine care
[2022-05-14] MEDS: ACETAMINOPHEN 325 MG TABLET 650 MG PO ×2 (10:48→17:10)
[2022-05-14] MEDS: IBUPROFEN 600 MG TABLET PO ×2 (10:49→17:13)
[2022-05-14] MEDS: METHYLERGONOVINE 0.2 MG/ML VIAL IM (11:20)
[2022-05-15] MEDS: ACETAMINOPHEN 325 MG TABLET 650 MG PO ×2 (00:43→11:19)
[2022-05-15] MEDS: IBUPROFEN 600 MG TABLET PO ×2 (00:44→11:19)
[2022-05-15 06:25] LABS: Hematocrit 33.8 % (36-46); Hemoglobin 11.3 g/dL (12.0-16.0)
[2022-05-15 10:00] VITALS: BP 110/55; PULSE 88; RESP 16; TEMP 36.5
== END 2022-05-15 12:35 | disposition home or self-care (01) | DRG 807 ==
PROVIDERS: Obstetrics & Gynecology; Admitting Provider Nurse Practitioner Obstetrics & Gynecology; Referring Provider Nurse Practitioner Obstetrics & Gynecology; Visit Provider Nurse Practitioner Obstetrics & Gynecology
DX: O70.0 First degree perineal laceration during delivery (principal); Z37.0 Single live birth; Z3A.39 39 weeks gestation of pregnancy
CPT/HCPCS: 36415; 59050; 59409; 85014; 85018; 85025; 86850; 86900; 86901; G0379; J2210; J2590

== ENCOUNTER 2022-08-15 16:37 | Emergency (ER) | payer MEDICAID, OTHER, SELFPAY ==
[2022-08-15 16:48] VITALS: BP 156/69; PULSE 75; RESP 18; TEMP 36.9; O2SAT 100; BMI 33.4
--- NOTE | 2022-08-15 16:54 | DI.RAD.S_ITS ---
PROCEDURE: XR CHEST 1V INDICATIONS: chest pain TECHNIQUE: One view of the chest was acquired. COMPARISON: None. FINDINGS: Surgical changes and devices: None. Lungs and pleura: Lungs are clear. No pleural effusions or pneumothorax. Mediastinum: Mediastinal contours appear normal. Heart size is normal. Bones and chest wall: No suspicious bony lesions. Overlying soft tissues appear unremarkable. IMPRESSION: No acute cardiopulmonary disease. Dictated by: Serene Lou M.D. on 08/15/2022 at 17:28 Approved by: Serene Lou M.D. on 08/15/2022 at 17:28
[2022-08-15] MEDS: MAG HYDROX/ALUMINUM/SIMETH SUS 20 ML, LIDOCAINE VISCOUS 2% 15 ML PO (17:15)
[2022-08-15 17:18] LABS: Add Manual Diff / Slide Review NO; Basophils Absolute Auto 100 /uL (0-100); Basophils Percent Auto 0.5 % (0-2); Eosinophils Absolute Auto 100 /uL (0-450); Eosinophils Percent Auto 0.5 % (2-4); Hematocrit 41.8 % (36-46); Lymphocytes Absolute Auto 1400 /uL (1100-4500); Lymphocytes Percent Auto 11.3 % (25-40); Mean Corpuscular HGB Conc 33.5 % (30-36); Mean Corpuscular Hemoglobin 26.8 PG (26-34); Monocytes Absolute Auto 600 /uL (0-900); Monocytes Percent Auto 5.2 % (3-14); Neutrophils Absolute Auto 10100 /uL (1500-7000); Neutrophils Percent Auto 82.5 % (50-75); Platelet Count 288 X10^3/uL (150-400); Red Blood Cell Count 5.22 X10^6/uL (4.0-5.2); Red Cell Distribution Width 13.6 % (11.6-14.8); White Blood Cell Count 12.3 X10^3/uL (4.5-11.0)
--- NOTE | 2022-08-15 17:22 | DI.US.S_ITS ---
PROCEDURE: US ABDOMEN LIMITED INDICATIONS: RUQ TECHNIQUE: Real-time focused scanning was performed of the abdomen, with image documentation. COMPARISON: None. FINDINGS: The gallbladder is distended. The wall is within normal limits of thickness measuring 2.7 cm. There is a stone dependently at the neck of the gallbladder measuring 1.3 cm. No visible pericholecystic fluid or sonographic Mendez sign per the technologist. The visible portion of the pancreas, liver and biliary tree is otherwise normal. IMPRESSION: 1. Cholelithiasis without sonographic evidence of acute cholecystitis. Dictated by: Serene Lou M.D. on 08/15/2022 at 19:41 Approved by: Serene Lou M.D. on 08/15/2022 at 19:43
[2022-08-15 17:24] LABS: Prothrombin Time 11.2 SECONDS (10.1-12.7)
[2022-08-15 17:26] LABS: PTT Partial Thromboplastin Tim 34 SECONDS (26-36)
--- NOTE | 2022-08-15 17:29 | ED_ITS ---
HPI - Chest Pain <TOMMIE Coffman - Last Filed: 08/15/22 20:28> General Chief Complaint: Chest Pain Stated Complaint: SOB feel weird bad heart burn poss heart attack Time Seen by Provider: 08/15/22 17:22 Source: patient and family Mode of arrival: Wheelchair History of Present Illness HPI narrative: This is a 37-year-old female who is 3 months who presents to the emergency department for midsternal chest pain that started while she was today at 12 noon. She states it is primarily in her epigastrium, states it feels similar to heartburn, states that her sister has similar symptoms, she endorses right upper quadrant pain as well and tenderness to palpation. She denies fever and chills, states that she tried Tums, and talk to her OBGYN she is 5 and was recommended coming to the emergency department. Reports that her chest pain radiates to her back, her left shoulder, her right flank. She feels weird she states, similar to the worst heartburn she is had, and is mildly short of breath. She is , denies any post delivery complications. Denies recent antibiotic use. Denies history of abdominal surgeries Related Data Home Medications Medication Instructions Recorded Confirmed prenat.vits,chelsie,[id number] 1 tab PO DAILY 10/07/21 06/26/22 Previous Rx's Medication Instructions Recorded hydrocodone 5 mg-acetaminophen 325 1 tab PO BID PRN pain #14 tabs 08/15/22 mg tablet nitrofurantoin macrocrystal 100 mg 100 mg PO BID 5 days #10 caps 08/15/22 capsule omeprazole 40 mg capsule,delayed 40 mg PO DAILY #30 caps 08/15/22 release ondansetron HCl 4 mg tablet 4 mg PO Q8H PRN nausea and 08/15/22 vomiting #14 tabs sucralfate 1 gram tablet (Carafate) 1 g PO BID PRN epigastric pain #60 08/15/22 tabs Allergies Allergy/AdvReac Type Severity Reaction Status Date / Time bee venom protein (honey bee) Allergy Severe Anaphylaxis Verified 08/15/22 16:48 Latex, Natural Rubber Allergy Intermediate Hives Verified 08/15/22 16:48 Penicillins Allergy Intermediate Hives Verified 08/15/22 16:48 Review of Systems <TOMMIE Coffman - Last Filed: 08/15/22 20:28> Review of Systems ROS Unobtainable: All systems reviewed & are unremarkable except as noted in HPI and below Patient History <TOMMIE Coffamn - Last Filed: 08/15/22 20:28> Medical History Anemia (~2017) Asthma (~1999) Surgical History Anesthesia Ectopic (~2009) Status post appendectomy (~2011) Status post tonsillectomy and adenoidectomy [place] teeth extracted Family History Father Diabetes mellitus Mother Hypertension Cleft palate Family/Other Epilepsy Family/Other Cleft lip and palate Social History marital status: household members: spouse, family ([id number]) and children lives independently: Yes housing: house pets and animals: Yes (2 dogs) education level: high school occupational status: unemployed current occupational exposures/hazards: No special shira needs: No seatbelt use: always helmet use: Yes water heater temp set < 120 deg: No (will check) working smoke detector in home: Yes fire extinguisher in home: Yes carbon monox detector in home: Yes firearms in home: No do you feel safe at home: Yes Smoking Status: Former smoker Tobacco: How many years used: 3 second hand exposure: No (mother and erczzr-kz-ehs smoke, but only outdoors and not near pt) alcohol intake: former substance use type: does not use during the past year weight has: other (fluctuates quite a bit) well-balanced diet: daily or most days daily servings fruits/ve-4 caffeine: Yes Type(s) of exercise: walking Smoking Status: Former smoker Substance Use Type: does not use Exam <TOMMIE Coffman - Last Filed: 08/15/22 20:28> Narrative Exam Narrative: Reviewed vitals signs and nursing notes. General: Pleasant, sitting upright hunched over in chair, appears to feel poorly, complains of epigastric pain well groomed, afebrile HEENT: symmetrical facial expressions, moist mucous membranes, neck is supple CV: regular rate and rhythm, warm extremities Respiratory: normal work of breathing, without tachypnea or hypoxia. GI: abdomen soft, nondistended, she has right-sided CVA tenderness to palpation, right upper quadrant tenderness and epigastric tenderness to palpation, positive Mendez's sign, negative for pain over McBurney's point. MSK: moves all extremities, no weakness, normal tone, ambulatory without deficit Skin: brisk capillary refill, without rash or wound Neuro: clear speech and normal cognition, A&O x3, GCS 15, no focal motor or sensation deficits Initial Vital Signs Initial Vital Signs: Vital Signs Temperature 98.4 F 08/15/22 16:48 Pulse Rate 75 08/15/22 16:48 Respiratory Rate 18 08/15/22 16:48 Blood Pressure 156/69 H 08/15/22 16:48 Pulse Oximetry 100 08/15/22 16:48 Oxygen Delivery Method Room Air 08/15/22 16:48 <Woody Ghosh DO - Last Filed: 08/15/22 17:45> Initial Vital Signs Initial Vital Signs: Vital Signs Temperature 98.4 F 08/15/22 16:48 Pulse Rate 75 08/15/22 16:48 Respiratory Rate 18 08/15/22 16:48 Blood Pressure 156/69 H 08/15/22 16:48 Pulse Oximetry 100 08/15/22 16:48 Oxygen Delivery Method Room Air 08/15/22 16:48 <Des Lopez DO - Last Filed: 08/16/22 03:56> Initial Vital Signs Initial Vital Signs: Vital Signs Temperature 98.4 F 08/15/22 16:48 Pulse Rate 75 08/15/22 16:48 Respiratory Rate 18 08/15/22 16:48 Blood Pressure 156/69 H 08/15/22 16:48 Pulse Oximetry 100 08/15/22 16:48 Oxygen Delivery Method Room Air 08/15/22 16:48 Course <TOMMIE Coffman - Last Filed: 08/15/22 20:28> Orders Ordered: Discontinued Medications Hydrocodone Bitart/Acetaminophen (Hydrocodone/Acet 5/325 Prepack) 1 bottle MISC SEEINSTR ONE Stop: 08/15/22 20:24 Last Admin: 08/15/22 20:41 Dose: 1 bottle Documented By: MALLIKA Aspirin (Aspirin 81 Mg Chew Tab) 324 mg PO NOW ONE Stop: 08/15/22 16:55 Last Admin: 08/15/22 17:10 Dose: Not Given Documented By: RAISA Al Hydrox/Mg Hydrox/Simethicone 20 ml/ Lidocaine HCl 15 ml 0 ml PO NOW ONE Stop: 08/15/22 17:11 Last Admin: 08/15/22 17:15 Dose: 35 ml Documented By: RAISA Hydromorphone HCl (Hydromorphone 0.5 Mg Inj) 0.5 mg IV NOW ONE Stop: 08/15/22 17:49 Last Admin: 08/15/22 18:02 Dose: 0.5 mg Documented By: RUSLAN Sodium Chloride (Normal Saline 0.9%) 1,000 mls @ 1,000 mls/hr IV BOLUS ONE Stop: 08/15/22 19:58 Last Infusion: 08/15/22 20:41 Dose: 0 mls/hr Documented By: Admin: 08/15/22 19:06 Dose: 1,000 mls/hr Documented By: RUSLAN Ketorolac Tromethamine (Ketorolac 30 Mg/Ml Vial) 15 mg IV NOW ONE Stop: 08/15/22 17:49 Last Admin: 08/15/22 18:02 Dose: 15 mg Documented By: RUSLAN Nitrofurantoin Macrocrystals (Nitrofurantoin Er 100 Mg Capsule) 100 mg PO NOW ONE Stop: 08/15/22 18:17 Last Admin: 08/15/22 19:01 Dose: 100 mg Documented By: RUSLAN Ondansetron HCl (Ondansetron 4 Mg/2 Ml Inj) 4 mg IV NOW ONE Stop: 08/15/22 17:49 Last Admin: 08/15/22 18:02 Dose: 4 mg Documented By: RUSLAN Ondansetron HCl (Ondansetron 4 Mg/2 Ml Inj) 4 mg IV NOW ONE Stop: 08/15/22 19:00 Last Admin: 08/15/22 19:06 Dose: Not Given Documented By: RUSLAN Pantoprazole Sodium (Pantoprazole 40 Mg Vial) 40 mg IV NOW ONE Stop: 08/15/22 17:49 Last Admin: 08/15/22 18:02 Dose: 40 mg Documented By: RUSLAN Vital Signs Vital signs: Vital Signs - 8 hr 08/15/22 20:45 Pulse Rate 67 Respiratory Rate 16 Blood Pressure 109/62 Pulse Oximetry 97 Oxygen Delivery Method Room Air <Woody Ghosh DO - Last Filed: 08/15/22 17:45> Orders Ordered: Discontinued Medications Hydrocodone Bitart/Acetaminophen (Hydrocodone/Acet 5/325 Prepack) 1 bottle MISC SEEINSTR ONE Stop: 08/15/22 20:24 Last Admin: 08/15/22 20:41 Dose: 1 bottle Documented By: MALLIKA Aspirin (Aspirin 81 Mg Chew Tab) 324 mg PO NOW ONE Stop: 08/15/22 16:55 Last Admin: 08/15/22 17:10 Dose: Not Given Documented By: RAISA Al Hydrox/Mg Hydrox/Simethicone 20 ml/ Lidocaine HCl 15 ml 0 ml PO NOW ONE Stop: 08/15/22 17:11 Last Admin: 08/15/22 17:15 Dose: 35 ml Documented By: RAISA Hydromorphone HCl (Hydromorphone 0.5 Mg Inj) 0.5 mg IV NOW ONE Stop: 08/15/22 17:49 Last Admin: 08/15/22 18:02 Dose: 0.5 mg Documented By: RUSLAN Sodium Chloride (Normal Saline 0.9%) 1,000 mls @ 1,000 mls/hr IV BOLUS ONE Stop: 08/15/22 19:58 Last Infusion: 08/15/22 20:41 Dose: 0 mls/hr Documented By: Admin: 08/15/22 19:06 Dose: 1,000 mls/hr Documented By: RUSLAN Ketorolac Tromethamine (Ketorolac 30 Mg/Ml Vial) 15 mg IV NOW ONE Stop: 08/15/22 17:49 Last Admin: 08/15/22 18:02 Dose: 15 mg Documented By: RUSLAN Nitrofurantoin Macrocrystals (Nitrofurantoin Er 100 Mg Capsule) 100 mg PO NOW ONE Stop: 08/15/22 18:17 Last Admin: 08/15/22 19:01 Dose: 100 mg Documented By: RUSLAN Ondansetron HCl (Ondansetron 4 Mg/2 Ml Inj) 4 mg IV NOW ONE Stop: 08/15/22 17:49 Last Admin: 08/15/22 18:02 Dose: 4 mg Documented By: RUSLAN Ondansetron HCl (Ondansetron 4 Mg/2 Ml Inj) 4 mg IV NOW ONE Stop: 08/15/22 19:00 Last Admin: 08/15/22 19:06 Dose: Not Given Documented By: RUSLAN Pantoprazole Sodium (Pantoprazole 40 Mg Vial) 40 mg IV NOW ONE Stop: 08/15/22 17:49 Last Admin: 08/15/22 18:02 Dose: 40 mg Documented By: RUSLAN Vital Signs Vital signs: Vital Signs - 8 hr 08/15/22 20:45 Pulse Rate 67 Respiratory Rate 16 Blood Pressure 109/62 Pulse Oximetry 97 Oxygen Delivery Method Room Air <Des Lopez DO - Last Filed: 08/16/22 03:56> Orders Ordered: Discontinued Medications Hydrocodone Bitart/Acetaminophen (Hydrocodone/Acet 5/325 Prepack) 1 bottle MISC SEEINSTR ONE Stop: 08/15/22 20:24 Last Admin: 08/15/22 20:41 Dose: 1 bottle Documented By: MALLIKA Aspirin (Aspirin 81 Mg Chew Tab) 324 mg PO NOW ONE Stop: 08/15/22 16:55 Last Admin: 08/15/22 17:10 Dose: Not Given Documented By: RAISA Al Hydrox/Mg Hydrox/Simethicone 20 ml/ Lidocaine HCl 15 ml 0 ml PO NOW ONE Stop: 08/15/22 17:11 Last Admin: 08/15/22 17:15 Dose: 35 ml Documented By: RAISA Hydromorphone HCl (Hydromorphone 0.5 Mg Inj) 0.5 mg IV NOW ONE Stop: 08/15/22 17:49 Last Admin: 08/15/22 18:02 Dose: 0.5 mg Documented By: RUSLAN Sodium Chloride (Normal Saline 0.9%) 1,000 mls @ 1,000 mls/hr IV BOLUS ONE Stop: 08/15/22 19:58 Last Infusion: 08/15/22 20:41 Dose: 0 mls/hr Documented By: Admin: 08/15/22 19:06 Dose: 1,000 mls/hr Documented By: RUSLAN Ketorolac Tromethamine (Ketorolac 30 Mg/Ml Vial) 15 mg IV NOW ONE Stop: 08/15/22 17:49 Last Admin: 08/15/22 18:02 Dose: 15 mg Documented By: RUSLAN Nitrofurantoin Macrocrystals (Nitrofurantoin Er 100 Mg Capsule) 100 mg PO NOW ONE Stop: 08/15/22 18:17 Last Admin: 08/15/22 19:01 Dose: 100 mg Documented By: RUSLAN Ondansetron HCl (Ondansetron 4 Mg/2 Ml Inj) 4 mg IV NOW ONE Stop: 08/15/22 17:49 Last Admin: 08/15/22 18:02 Dose: 4 mg Documented By: RUSLAN Ondansetron HCl (Ondansetron 4 Mg/2 Ml Inj) 4 mg IV NOW ONE Stop: 08/15/22 19:00 Last Admin: 08/15/22 19:06 Dose: Not Given Documented By: RUSLAN Pantoprazole Sodium (Pantoprazole 40 Mg Vial) 40 mg IV NOW ONE Stop: 08/15/22 17:49 Last Admin: 08/15/22 18:02 Dose: 40 mg Documented By: RUSLAN Vital Signs Vital signs: Vital Signs - 8 hr 08/15/22 20:45 Pulse Rate 67 Respiratory Rate 16 Blood Pressure 109/62 Pulse Oximetry 97 Oxygen Delivery Method Room Air MDM - Chest Pain <Sari Portillo, [facility] - Last Filed: 08/15/22 20:28> Lab Data 08/15/22 17:00 08/15/22 17:00 Labs: Lab Results 08/15/22 08/15/22 08/15/22 Range/Units 17:00 17:00 17:00 WBC 12.3 H (4.5-11.0) X10^3/uL RBC 5.22 H (4.0-5.2) X10^6/uL Hgb 14.0 (12.0-16.0) g/dL Hct 41.8 (36-46) % MCV 80.0 (80-100) fL MCH 26.8 (26-34) PG MCHC 33.5 (30-36) % RDW 13.6 (11.6-14.8) % Plt Count 288 (150-400) X10^3/uL Neut % (Auto) 82.5 H (50-75) % Lymph % (Auto) 11.3 L (25-40) % [place] % (Auto) 5.2 (3-14) % Eos % (Auto) 0.5 L (2-4) % Baso % (Auto) 0.5 (0-2) % Neut # (Auto) 66298 H (4560-8249) /uL Lymph # (Auto) 1400 (0873-9246) /uL [place] # (Auto) 600 (0-900) /uL Eos # (Auto) 100 (0-450) /uL Baso # (Auto) 100 (0-100) /uL PT 11.2 (10.1-12.7) SECONDS INR 1.0 (0.9-1.3) APTT 34 (26-36) SECONDS D-Dimer (<500) ng/ml Sodium 138 (137-145) mmol/L Potassium 3.7 (3.4-5.1) mmol/L Chloride 103 (98-107) mmol/L Carbon Dioxide 24 (22-32) mmol/L BUN 10 (7-17) mg/dL Creatinine 0.81 (0.52-1.04) mg/dL Estimated GFR > 60 (>60) mL/min BUN/Creatinine Ratio 12.3 (6-22) Glucose 152 H (70-100) mg/dL Calcium 9.7 (8.4-10.2) mg/dL Magnesium 2.0 (1.6-2.3) mg/dL Total Bilirubin 0.4 (0.2-1.3) mg/dL AST 45 H (14-36) IU/L ALT 36 H (<35) IU/L Alkaline Phosphatase 90 (38-126) U/L Total Creatine Kinase 52 (30-135) U/L CK-MB (CK-2) TNP CK-MB (CK-2) Rel Index TNP Troponin I < 0.012 (0.01-0.034) ng/mL C-Reactive Protein (<1.0) mg/dL Total Protein 8.1 (6.3-8.2) g/dL Albumin 4.8 (3.5-5.0) g/dL Globulin 3.3 (1.7-4.1) g/dL Albumin/Globulin Ratio 1.5 (1.0-2.8) Lipase 59 (23-300) U/L Urine RBC (0-5/HPF) Urine WBC (0-5/HPF) Ur Squamous Epith Cells (0-5/HPF) Urine Bacteria (None) Ur Culture Indicated? SARS-CoV-2 (PCR) (Negative) Influenza A (RT-PCR) (NEGATIVE) Influenza B (RT-PCR) (NEGATIVE) RSV (PCR) (Negative) 08/15/22 08/15/22 08/15/22 Range/Units 17:00 17:00 17:46 WBC (4.5-11.0) X10^3/uL RBC (4.0-5.2) X10^6/uL Hgb (12.0-16.0) g/dL Hct (36-46) % MCV (80-100) fL MCH (26-34) PG MCHC (30-36) % RDW (11.6-14.8) % Plt Count (150-400) X10^3/uL Neut % (Auto) (50-75) % Lymph % (Auto) (25-40) % [place] % (Auto) (3-14) % Eos % (Auto) (2-4) % Baso % (Auto) (0-2) % Neut # (Auto) (4585-5047) /uL Lymph # (Auto) (8089-6346) /uL [place] # (Auto) (0-900) /uL Eos # (Auto) (0-450) /uL Baso # (Auto) (0-100) /uL PT (10.1-12.7) SECONDS INR (0.9-1.3) APTT (26-36) SECONDS D-Dimer 712 H (<500) ng/ml Sodium (137-145) mmol/L Potassium (3.4-5.1) mmol/L Chloride (98-107) mmol/L Carbon Dioxide (22-32) mmol/L BUN (7-17) mg/dL Creatinine (0.52-1.04) mg/dL Estimated GFR (>60) mL/min BUN/Creatinine Ratio (6-22) Glucose (70-100) mg/dL Calcium (8.4-10.2) mg/dL Magnesium (1.6-2.3) mg/dL Total Bilirubin (0.2-1.3) mg/dL AST (14-36) IU/L ALT (<35) IU/L Alkaline Phosphatase (38-126) U/L Total Creatine Kinase (30-135) U/L CK-MB (CK-2) CK-MB (CK-2) Rel Index Troponin I (0.01-0.034) ng/mL C-Reactive Protein 0.8 (<1.0) mg/dL Total Protein (6.3-8.2) g/dL Albumin (3.5-5.0) g/dL Globulin (1.7-4.1) g/dL Albumin/Globulin Ratio (1.0-2.8) Lipase (23-300) U/L Urine RBC 0-1/hpf (0-5/HPF) Urine WBC 0-1/hpf (0-5/HPF) Ur Squamous Epith Cells 1-5 /hpf (0-5/HPF) Urine Bacteria Few (2-10) H (None) Ur Culture Indicated? Cult not indicated SARS-CoV-2 (PCR) (Negative) Influenza A (RT-PCR) (NEGATIVE) Influenza B (RT-PCR) (NEGATIVE) RSV (PCR) (Negative) 08/15/22 Range/Units 18:20 WBC (4.5-11.0) X10^3/uL RBC (4.0-5.2) X10^6/uL Hgb (12.0-16.0) g/dL Hct (36-46) % MCV (80-100) fL MCH (26-34) PG MCHC (30-36) % RDW (11.6-14.8) % Plt Count (150-400) X10^3/uL Neut % (Auto) (50-75) % Lymph % (Auto) (25-40) % [place] % (Auto) (3-14) % Eos % (Auto) (2-4) % Baso % (Auto) (0-2) % Neut # (Auto) (7528-2815) /uL Lymph # (Auto) (2353-2314) /uL [place] # (Auto) (0-900) /uL Eos # (Auto) (0-450) /uL Baso # (Auto) (0-100) /uL PT (10.1-12.7) SECONDS INR (0.9-1.3) APTT (26-36) SECONDS D-Dimer (<500) ng/ml Sodium (137-145) mmol/L Potassium (3.4-5.1) mmol/L Chloride (98-107) mmol/L Carbon Dioxide (22-32) mmol/L BUN (7-17) mg/dL Creatinine (0.52-1.04) mg/dL Estimated GFR (>60) mL/min BUN/Creatinine Ratio (6-22) Glucose (70-100) mg/dL Calcium (8.4-10.2) mg/dL Magnesium (1.6-2.3) mg/dL Total Bilirubin (0.2-1.3) mg/dL AST (14-36) IU/L ALT (<35) IU/L Alkaline Phosphatase (38-126) U/L Total Creatine Kinase (30-135) U/L CK-MB (CK-2) CK-MB (CK-2) Rel Index Troponin I (0.01-0.034) ng/mL C-Reactive Protein (<1.0) mg/dL Total Protein (6.3-8.2) g/dL Albumin (3.5-5.0) g/dL Globulin (1.7-4.1) g/dL Albumin/Globulin Ratio (1.0-2.8) Lipase (23-300) U/L Urine RBC (0-5/HPF) Urine WBC (0-5/HPF) Ur Squamous Epith Cells (0-5/HPF) Urine Bacteria (None) Ur Culture Indicated? SARS-CoV-2 (PCR) Negative (Negative) Influenza A (RT-PCR) Flu a negative (NEGATIVE) Influenza B (RT-PCR) Flu b negative (NEGATIVE) RSV (PCR) Negative (Negative) Imaging Data Chest x-ray: Radiologist's Impression: PROCEDURE:? XR CHEST 1V ? INDICATIONS:? chest pain ? TECHNIQUE:? One view of the chest was acquired.? ? COMPARISON:? None. ? FINDINGS:? ? Surgical changes and devices:? None.? ? Lungs and pleura:? Lungs are clear.? No pleural effusions or pneumothorax.? ? Mediastinum:? Mediastinal contours appear normal.? Heart size is normal.? ? Bones and chest wall:? No suspicious bony lesions.? Overlying soft tissues appear unremarkable.? ? IMPRESSION:? No acute cardiopulmonary disease.? ? ? Dictated by: Serene Lou M.D. on 08/15/2022 at 17:28 ? ? Approved by: Serene Lou M.D. on 08/15/2022 at 17:28 ? US - abdomen: Radiologist's Impression: PROCEDURE: US ABDOMEN LIMITED ? INDICATIONS:? RUQ ? TECHNIQUE:? Real-time focused scanning was performed of the abdomen, with image documentation.? ? COMPARISON:? None. ? FINDINGS:? The gallbladder is distended.? The wall is within normal limits of thickness measuring 2.7 cm.? There is a stone dependently at the neck of the gallbladder measuring 1.3 cm.? No visible pericholecystic fluid or sonographic Mendez sign per the technologist. ? The visible portion of the pancreas, liver and biliary tree is otherwise normal.? ? IMPRESSION:? ? 1. Cholelithiasis without sonographic evidence of acute cholecystitis.? ? ? Dictated by: Serene Lou M.D. on 08/15/2022 at 19:41 ? ? Approved by: Serene Lou M.D. on 08/15/2022 at 19:43 ? CT scan - chest: Radiologist's Impression: PROCEDURE:? CT ANGIO CHEST PE PROTOCOL ? INDICATIONS:? elevated D Dimer, CP SOB ? TECHNIQUE:? After the administration of intravenous contrast, 2 mm thick sections acquired from the pulmonary apices to the posterior costophrenic angles.? 3-dimensional maximum intensity projection (MIP) coronal and sagittal reformats were then acquired through the thorax.? For radiation dose reduction, the following was used:? automated exposure control, adjustment of mA and/or kV according to patient size.? ? COMPARISON:? None. ? FINDINGS:? Image quality:? Excellent.? ? Pulmonary arteries:? Pulmonary arteries are normal in size, and demonstrate no intraluminal filling defects to suggest central pulmonary embolism.? ? Lungs and pleura:? Lungs are clear.? No pleural effusions or pneumothorax.? Central and peripheral airways are patent.? ? Mediastinum:? Heart size is normal, without pericardial effusion.? No mediastinal or hilar adenopathy.? Thoracic aorta is normal in caliber and enhancement.? Esophagus is normal in caliber, without hiatal hernia.? ? Bones and chest wall:? No suspicious bony lesions.? Ribs and thoracic spine appear intact throughout.? Thyroid gland has a normal CT appearance..? No axillary or supraclavicular adenopathy.? ? Abdomen:? Visualized upper abdominal solid organs appear normal in the early arterial phase of enhancement.? ? IMPRESSION:? ? 1. No pulmonary embolus. ? 2. No acute pulmonary parenchymal disease.? ? ? Dictated by: Serene Lou M.D. on 08/15/2022 at 20:01 ? ? Approved by: Serene Lou M.D. on 08/15/2022 at 20:04 ? ECG Data Interpretation: EKG independently reviewed by myself at [1704] reveals sinus bradycardia at 59 bpm with regular axis and intervals. No STEMI, ST segment changes, arrhythmia, or acute ischemic changes. MDM Narrative Medical decision making narrative: Chief Complaint: Chest pain Independent historian: Patient Multiple etiologies for patient's symptoms considered including, but not limited to: [place], PE, pneumothorax, pneumonia, aortic dissection, pericarditis, muscle strain/sprain, costochondritis, gastritis versus GERD/gastric ulcer, viral process and pleurisy, mastitis, urinary tract infection, allergic reaction, cholecystitis, cholangitis, cholelithiasis I have independently reviewed the patient's vital signs and nursing notes as well as prior records if available. Pertinent records include: Records reviewed without evidence of abnormality or problem My EKG interpretation: EKG with sinus rhythm/sinus bradycardia at 59 beats per minute, no ST changes, no ectopy My interpretation of lab studies: Patient's urine dip shows 1+ bilirubin, ketones, specific gravity of 1.015, pH of 7.5, protein of +15 and negative for leukocytes, nitrites, and blood, mild leukocytosis of 12.3, hemoconcentration, no anemia, neutrophil percentage of 82.5 chemistries significant for mild elevation of AST to 45 and ALT of 36 however no elevation of total bilirubin or other liver enzymes, troponin is negative for elevation, CRP 0.8, patient's D- dimer is elevated at 712, she is however she came in for chest pain or shortness of breath so will pursue CT PE angio chest My interpretation of imaging: Chest x-ray without focal opacity, pneumothorax or cardiomegaly PERC is low risk but due to patient's chest pain, shortness of breath, elevated D-dimer, CTA chest ordered. CTA chest is negative for pulmonary embolus, abdominal ultrasound is significant for gallstone in the gall bladder neck Patient's symptoms were treated 1 L normal saline, Toradol, Zofran, Dilaudid, Protonix and a GI cocktail which patient states help much but tasted bad. Patient's COVID PCR including RSV, influenza a, B COVID is negative for all tested viruses Consultation with Dr. Mireles from General surgery about gallstone in gallbladder neck, since patient's lab work overall is reassuring, she is p.o. tolerant and has not had vomiting, he states that she can be discharged and follow-up as an outpatient in clinic. He was cc on the chart. Patient was discharged with ondansetron, omeprazole, Carafate for her epigastric pain, H pylori is pending, Macrobid for mild UTI, hydrocodone for pain and recommendations of a clear liqu id diet and low-fat diet her shared. UA with bacteria, some squamous cells, likely contaminant but greater bacteria then cells so given Macrobid. Social considerations that may affect disposition: none Questions are addressed and there is agreement with the plan and for follow-up. I consulted with the ED attending physician Dr. Lopez as needed for higher level of care considerations and they were available for discussion and recommendations regarding plan of care and diagnostic testing. Patient is appropriate for outpatient management. <Woody Ghosh, DO - Last Filed: 08/15/22 17:45> Lab Data Labs: Lab Results 08/15/22 08/15/22 08/15/22 Range/Units 17:00 17:00 17:00 WBC 12.3 H (4.5-11.0) X10^3/uL RBC 5.22 H (4.0-5.2) X10^6/uL Hgb 14.0 (12.0-16.0) g/dL Hct 41.8 (36-46) % MCV 80.0 (80-100) fL MCH 26.8 (26-34) PG MCHC 33.5 (30-36) % RDW 13.6 (11.6-14.8) % Plt Count 288 (150-400) X10^3/uL Neut % (Auto) 82.5 H (50-75) % Lymph % (Auto) 11.3 L (25-40) % [place] % (Auto) 5.2 (3-14) % Eos % (Auto) 0.5 L (2-4) % Baso % (Auto) 0.5 (0-2) % Neut # (Auto) 91060 H (4456-3770) /uL Lymph # (Auto) 1400 (4635-2155) /uL [place] # (Auto) 600 (0-900) /uL Eos # (Auto) 100 (0-450) /uL Baso # (Auto) 100 (0-100) /uL PT 11.2 (10.1-12.7) SECONDS INR 1.0 (0.9-1.3) APTT 34 (26-36) SECONDS D-Dimer (<500) ng/ml Sodium 138 (137-145) mmol/L Potassium 3.7 (3.4-5.1) mmol/L Chloride 103 (98-107) mmol/L Carbon Dioxide 24 (22-32) mmol/L BUN 10 (7-17) mg/dL Creatinine 0.81 (0.52-1.04) mg/dL Estimated GFR > 60 (>60) mL/min BUN/Creatinine Ratio 12.3 (6-22) Glucose 152 H (70-100) mg/dL Calcium 9.7 (8.4-10.2) mg/dL Magnesium 2.0 (1.6-2.3) mg/dL Total Bilirubin 0.4 (0.2-1.3) mg/dL AST 45 H (14-36) IU/L ALT 36 H (<35) IU/L Alkaline Phosphatase 90 (38-126) U/L Total Creatine Kinase 52 (30-135) U/L CK-MB (CK-2) TNP CK-MB (CK-2) Rel Index TNP Troponin I < 0.012 (0.01-0.034) ng/mL C-Reactive Protein (<1.0) mg/dL Total Protein 8.1 (6.3-8.2) g/dL Albumin 4.8 (3.5-5.0) g/dL Globulin 3.3 (1.7-4.1) g/dL Albumin/Globulin Ratio 1.5 (1.0-2.8) Lipase 59 (23-300) U/L Urine RBC (0-5/HPF) Urine WBC (0-5/HPF) Ur Squamous Epith Cells (0-5/HPF) Urine Bacteria (None) Ur Culture Indicated? SARS-CoV-2 (PCR) (Negative) Influenza A (RT-PCR) (NEGATIVE) Influenza B (RT-PCR) (NEGATIVE) RSV (PCR) (Negative) 08/15/22 08/15/22 08/15/22 Range/Units 17:00 17:00 17:46 WBC (4.5-11.0) X10^3/uL RBC (4.0-5.2) X10^6/uL Hgb (12.0-16.0) g/dL Hct (36-46) % MCV (80-100) fL MCH (26-34) PG MCHC (30-36) % RDW (11.6-14.8) % Plt Count (150-400) X10^3/uL Neut % (Auto) (50-75) % Lymph % (Auto) (25-40) % [place] % (Auto) (3-14) % Eos % (Auto) (2-4) % Baso % (Auto) (0-2) % Neut # (Auto) (5232-8552) /uL Lymph # (Auto) (1611-9290) /uL [place] # (Auto) (0-900) /uL Eos # (Auto) (0-450) /uL Baso # (Auto) (0-100) /uL PT (10.1-12.7) SECONDS INR (0.9-1.3) APTT (26-36) SECONDS D-Dimer 712 H (<500) ng/ml Sodium (137-145) mmol/L Potassium (3.4-5.1) mmol/L Chloride (98-107) mmol/L Carbon Dioxide (22-32) mmol/L BUN (7-17) mg/dL Creatinine (0.52-1.04) mg/dL Estimated GFR (>60) mL/min BUN/Creatinine Ratio (6-22) Glucose (70-100) mg/dL Calcium (8.4-10.2) mg/dL Magnesium (1.6-2.3) mg/dL Total Bilirubin (0.2-1.3) mg/dL AST (14-36) IU/L ALT (<35) IU/L Alkaline Phosphatase (38-126) U/L Total Creatine Kinase (30-135) U/L CK-MB (CK-2) CK-MB (CK-2) Rel Index Troponin I (0.01-0.034) ng/mL C-Reactive Protein 0.8 (<1.0) mg/dL Total Protein (6.3-8.2) g/dL Albumin (3.5-5.0) g/dL Globulin (1.7-4.1) g/dL Albumin/Globulin Ratio (1.0-2.8) Lipase (23-300) U/L Urine RBC 0-1/hpf (0-5/HPF) Urine WBC 0-1/hpf (0-5/HPF) Ur Squamous Epith Cells 1-5 /hpf (0-5/HPF) Urine Bacteria Few (2-10) H (None) Ur Culture Indicated? Cult not indicated SARS-CoV-2 (PCR) (Negative) Influenza A (RT-PCR) (NEGATIVE) Influenza B (RT-PCR) (NEGATIVE) RSV (PCR) (Negative) 08/15/22 Range/Units 18:20 WBC (4.5-11.0) X10^3/uL RBC (4.0-5.2) X10^6/uL Hgb (12.0-16.0) g/dL Hct (36-46) % MCV (80-100) fL MCH (26-34) PG MCHC (30-36) % RDW (11.6-14.8) % Plt Count (150-400) X10^3/uL Neut % (Auto) (50-75) % Lymph % (Auto) (25-40) % [place] % (Auto) (3-14) % Eos % (Auto) (2-4) % Baso % (Auto) (0-2) % Neut # (Auto) (3473-8329) /uL Lymph # (Auto) (7933-7836) /uL [place] # (Auto) (0-900) /uL Eos # (Auto) (0-450) /uL Baso # (Auto) (0-100) /uL PT (10.1-12.7) SECONDS INR (0.9-1.3) APTT (26-36) SECONDS D-Dimer (<500) ng/ml Sodium (137-145) mmol/L Potassium (3.4-5.1) mmol/L Chloride (98-107) mmol/L Carbon Dioxide (22-32) mmol/L BUN (7-17) mg/dL Creatinine (0.52-1.04) mg/dL Estimated GFR (>60) mL/min BUN/Creatinine Ratio (6-22) Glucose (70-100) mg/dL Calcium (8.4-10.2) mg/dL Magnesium (1.6-2.3) mg/dL Total Bilirubin (0.2-1.3) mg/dL AST (14-36) IU/L ALT (<35) IU/L Alkaline Phosphatase (38-126) U/L Total Creatine Kinase (30-135) U/L CK-MB (CK-2) CK-MB (CK-2) Rel Index Troponin I (0.01-0.034) ng/mL C-Reactive Protein (<1.0) mg/dL Total Protein (6.3-8.2) g/dL Albumin (3.5-5.0) g/dL Globulin (1.7-4.1) g/dL Albumin/Globulin Ratio (1.0-2.8) Lipase (23-300) U/L Urine RBC (0-5/HPF) Urine WBC (0-5/HPF) Ur Squamous Epith Cells (0-5/HPF) Urine Bacteria (None) Ur Culture Indicated? SARS-CoV-2 (PCR) Negative (Negative) Influenza A (RT-PCR) Flu a negative (NEGATIVE) Influenza B (RT-PCR) Flu b negative (NEGATIVE) RSV (PCR) Negative (Negative) <Des Lopez, DO - Last Filed: 08/16/22 03:56> Lab Data Labs: Lab Results 08/15/22 08/15/22 08/15/22 Range/Units 17:00 17:00 17:00 WBC 12.3 H (4.5-11.0) X10^3/uL RBC 5.22 H (4.0-5.2) X10^6/uL Hgb 14.0 (12.0-16.0) g/dL Hct 41.8 (36-46) % MCV 80.0 (80-100) fL MCH 26.8 (26-34) PG MCHC 33.5 (30-36) % RDW 13.6 (11.6-14.8) % Plt Count 288 (150-400) X10^3/uL Neut % (Auto) 82.5 H (50-75) % Lymph % (Auto) 11.3 L (25-40) % [place] % (Auto) 5.2 (3-14) % Eos % (Auto) 0.5 L (2-4) % Baso % (Auto) 0.5 (0-2) % Neut # (Auto) 88059 H (1557-6993) /uL Lymph # (Auto) 1400 (2586-2848) /uL [place] # (Auto) 600 (0-900) /uL Eos # (Auto) 100 (0-450) /uL Baso # (Auto) 100 (0-100) /uL PT 11.2 (10.1-12.7) SECONDS INR 1.0 (0.9-1.3) APTT 34 (26-36) SECONDS D-Dimer (<500) ng/ml Sodium 138 (137-145) mmol/L Potassium 3.7 (3.4-5.1) mmol/L Chloride 103 (98-107) mmol/L Carbon Dioxide 24 (22-32) mmol/L BUN 10 (7-17) mg/dL Creatinine 0.81 (0.52-1.04) mg/dL Estimated GFR > 60 (>60) mL/min BUN/Creatinine Ratio 12.3 (6-22) Glucose 152 H (70-100) mg/dL Calcium 9.7 (8.4-10.2) mg/dL Magnesium 2.0 (1.6-2.3) mg/dL Total Bilirubin 0.4 (0.2-1.3) mg/dL AST 45 H (14-36) IU/L ALT 36 H (<35) IU/L Alkaline Phosphatase 90 (38-126) U/L Total Creatine Kinase 52 (30-135) U/L CK-MB (CK-2) TNP CK-MB (CK-2) Rel Index TNP Troponin I < 0.012 (0.01-0.034) ng/mL C-Reactive Protein (<1.0) mg/dL Total Protein 8.1 (6.3-8.2) g/dL Albumin 4.8 (3.5-5.0) g/dL Globulin 3.3 (1.7-4.1) g/dL Albumin/Globulin Ratio 1.5 (1.0-2.8) Lipase 59 (23-300) U/L Urine RBC (0-5/HPF) Urine WBC (0-5/HPF) Ur Squamous Epith Cells (0-5/HPF) Urine Bacteria (None) Ur Culture Indicated? SARS-CoV-2 (PCR) (Negative) Influenza A (RT-PCR) (NEGATIVE) Influenza B (RT-PCR) (NEGATIVE) RSV (PCR) (Negative) 08/15/22 08/15/22 08/15/22 Range/Units 17:00 17:00 17:46 WBC (4.5-11.0) X10^3/uL RBC (4.0-5.2) X10^6/uL Hgb (12.0-16.0) g/dL Hct (36-46) % MCV (80-100) fL MCH (26-34) PG MCHC (30-36) % RDW (11.6-14.8) % Plt Count (150-400) X10^3/uL Neut % (Auto) (50-75) % Lymph % (Auto) (25-40) % [place] % (Auto) (3-14) % Eos % (Auto) (2-4) % Baso % (Auto) (0-2) % Neut # (Auto) (2440-7491) /uL Lymph # (Auto) (1599-4155) /uL [place] # (Auto) (0-900) /uL Eos # (Auto) (0-450) /uL Baso # (Auto) (0-100) /uL PT (10.1-12.7) SECONDS INR (0.9-1.3) APTT (26-36) SECONDS D-Dimer 712 H (<500) ng/ml Sodium (137-145) mmol/L Potassium (3.4-5.1) mmol/L Chloride (98-107) mmol/L Carbon Dioxide (22-32) mmol/L BUN (7-17) mg/dL Creatinine (0.52-1.04) mg/dL Estimated GFR (>60) mL/min BUN/Creatinine Ratio (6-22) Glucose (70-100) mg/dL Calcium (8.4-10.2) mg/dL Magnesium (1.6-2.3) mg/dL Total Bilirubin (0.2-1.3) mg/dL AST (14-36) IU/L ALT (<35) IU/L Alkaline Phosphatase (38-126) U/L Total Creatine Kinase (30-135) U/L CK-MB (CK-2) CK-MB (CK-2) Rel Index Troponin I (0.01-0.034) ng/mL C-Reactive Protein 0.8 (<1.0) mg/dL Total Protein (6.3-8.2) g/dL Albumin (3.5-5.0) g/dL Globulin (1.7-4.1) g/dL Albumin/Globulin Ratio (1.0-2.8) Lipase (23-300) U/L Urine RBC 0-1/hpf (0-5/HPF) Urine WBC 0-1/hpf (0-5/HPF) Ur Squamous Epith Cells 1-5 /hpf (0-5/HPF) Urine Bacteria Few (2-10) H (None) Ur Culture Indicated? Cult not indicated SARS-CoV-2 (PCR) (Negative) Influenza A (RT-PCR) (NEGATIVE) Influenza B (RT-PCR) (NEGATIVE) RSV (PCR) (Negative) 08/15/22 Range/Units 18:20 WBC (4.5-11.0) X10^3/uL RBC (4.0-5.2) X10^6/uL Hgb (12.0-16.0) g/dL Hct (36-46) % MCV (80-100) fL MCH (26-34) PG MCHC (30-36) % RDW (11.6-14.8) % Plt Count (150-400) X10^3/uL Neut % (Auto) (50-75) % Lymph % (Auto) (25-40) % [place] % (Auto) (3-14) % Eos % (Auto) (2-4) % Baso % (Auto) (0-2) % Neut # (Auto) (4114-5420) /uL Lymph # (Auto) (8812-2190) /uL [place] # (Auto) (0-900) /uL Eos # (Auto) (0-450) /uL Baso # (Auto) (0-100) /uL PT (10.1-12.7) SECONDS INR (0.9-1.3) APTT (26-36) SECONDS D-Dimer (<500) ng/ml Sodium (137-145) mmol/L Potassium (3.4-5.1) mmol/L Chloride (98-107) mmol/L Carbon Dioxide (22-32) mmol/L BUN (7-17) mg/dL Creatinine (0.52-1.04) mg/dL Estimated GFR (>60) mL/min BUN/Creatinine Ratio (6-22) Glucose (70-100) mg/dL Calcium (8.4-10.2) mg/dL Magnesium (1.6-2.3) mg/dL Total Bilirubin (0.2-1.3) mg/dL AST (14-36) IU/L ALT (<35) IU/L Alkaline Phosphatase (38-126) U/L Total Creatine Kinase (30-135) U/L CK-MB (CK-2) CK-MB (CK-2) Rel Index Troponin I (0.01-0.034) ng/mL C-Reactive Protein (<1.0) mg/dL Total Protein (6.3-8.2) g/dL Albumin (3.5-5.0) g/dL Globulin (1.7-4.1) g/dL Albumin/Globulin Ratio (1.0-2.8) Lipase (23-300) U/L Urine RBC (0-5/HPF) Urine WBC (0-5/HPF) Ur Squamous Epith Cells (0-5/HPF) Urine Bacteria (None) Ur Culture Indicated? SARS-CoV-2 (PCR) Negative (Negative) Influenza A (RT-PCR) Flu a negative (NEGATIVE) Influenza B (RT-PCR) Flu b negative (NEGATIVE) RSV (PCR) Negative (Negative) Discharge Plan Departure Patient Disposition: Home Clinical Impression: D-dimer, elevated, (infant) Cholelithiasis Qualifiers: Cholelithiasis location: gallbladder Cholecystitis presence: without cholecystitis Biliary obstruction: without biliary obstruction Qualified Code(s): K80.20 - Calculus of gallbladder without cholecystitis without obstruction Urinary tract infection Qualifiers: Urinary tract infection type: site unspecified Hematuria presence: without hematuria Qualified Code(s): N39.0 - Urinary tract infection, site not specified Chest pain Qualifiers: Chest pain type: other chest pain Qualified Code(s): R07.89 - Other chest pain Instructions: Gallstones, Fat-Restricted Diet Activity Restrictions/Additional Instructions: *You have been diagnosed with gallstones without evidence infection of your gallbladder wall. The sometimes gets better with anti-inflammatories, low-fat diet, plenty of clear fluids to stay hydrated. There is no evidence of a blood clot, please schedule follow-up with the [facility] office for evaluation, they will want to see you as soon as you are able to get in for an appointment. If you have worsening pain, nausea, fever chills, please come back to the emergency department. Please do not in any fatty foods for the next few days and ensure your getting plenty of rest. Take omeprazole daily, the antibiotic for urinary infection, and Carafate as needed to help coat your stomach if you feel sharp epigastric pain. *What to do: *Please continue to take your regular medications as directed. [ x] New medication prescriptions sent to your pharmacy: [ Suzie Mancia [ ] New medication written as a paper prescription [ ] No new medications given *Please call and schedule follow up with your primary care provider in 2-3 days, at least for an update. Let them know you were seen in the Emergency Department for the above problem. We will electronically transmit a record of today's note if your PCP or specialist is in our system. *If you do not have a primary care provider please contact [phone] to establish care with one of the [facility] primary care providers. *Return to the Emergency Department for worsening symptoms, inability to keep liquids down, fever greater than 101F, chills, or other concerning symptom. Prescriptions: New nitrofurantoin macrocrystal 100 mg capsule 100 mg PO BID 5 Days Qty: 10 0RF Rx Instructions: must administer with a meal/food omeprazole 40 mg capsule,delayed release(DR/EC) 40 mg PO DAILY Qty: 30 0RF sucralfate [Carafate] 1 gram tablet 1 g PO BID PRN (Reason: epigastric pain) Qty: 60 0RF hydrocodone-acetaminophen 5-325 mg tablet 1 tab PO BID PRN (Reason: pain) Qty: 14 0RF ondansetron HCl 4 mg tablet 4 mg PO Q8H PRN (Reason: nausea and vomiting) Qty: 14 0RF No Action prenat.vits,chelsie,zom-ydri-pgsdg Tablet 1 tab PO DAILY Referrals: [facility] [Provider Group] - As soon as possible Hector Mireles MD [Physician] - Stand Alone Forms: Patient Portal/API <Woody Ghosh DO - Last Filed: 08/15/22 17:45> [facility] ED Attending Velma Attestation: Dr Ghosh Co-Sign Statement: I was available for consultation during this patient's emergency department visit. This chart is signed by myself for administrative purposes only. I did not have direct contact with this patient during this visit. They were seen independently by the APC. <Des Lopez, - Last Filed: 08/16/22 03:56> [facility] ED Attending Velma Attestation: Dr Ghosh Co-Sign Statement: I was available for consultation during this patient's emergency department visit. This chart is signed by myself for administrative purposes only. I did not have direct contact with this patient during this visit. They were seen independently by the APC. I was immediately available in the department for consultation. Documentation has been reviewed. I agree with assessment and plan.
[2022-08-15 17:30] LABS: Alanine Aminotransferase 36 IU/L (<35); Albumin 4.8 g/dL (3.5-5.0); Albumin Globulin Ratio 1.5 (1.0-2.8); Alkaline Phosphatase 90 U/L (38-126); Aspartate Aminotransferase 45 IU/L (14-36); BUN Creatinine Ratio 12.3 (6-22); Bilirubin Total 0.4 mg/dL (0.2-1.3); Blood Urea Nitrogen 10 mg/dL (7-17); Calcium 9.7 mg/dL (8.4-10.2); Carbon Dioxide 24 mmol/L (22-32); Chloride 103 mmol/L (98-107); Creatine Kinase 52 U/L (30-135); Estimated Glomerular Filt Rate > 60 mL/min (>60); Globulin 3.3 g/dL (1.7-4.1); Glucose 152 mg/dL (70-100); HEMOLYSIS < 15 (0-50); Lipase 59 U/L (23-300); Potassium 3.7 mmol/L (3.4-5.1); Sodium 138 mmol/L (137-145); Total Protein 8.1 g/dL (6.3-8.2)
[2022-08-15 17:41] LABS: Troponin I < 0.012 ng/mL (0.01-0.034)
[2022-08-15 17:54] LABS: C-Reactive Protein Quant 0.8 mg/dL (<1.0)
[2022-08-15 18:01] LABS: D Dimer 712 ng/ml (<500)
[2022-08-15] MEDS: KETOROLAC 30 MG/ML VIAL 15 MG IV (18:02)
[2022-08-15] MEDS: ONDANSETRON 4 MG/2 ML INJ IV (18:02)
[2022-08-15] MEDS: HYDROMORPHONE 0.5 MG INJ IV (18:02)
[2022-08-15] MEDS: PANTOPRAZOLE 40 MG VIAL IV (18:02)
[2022-08-15 18:10] LABS: Bacteria Urine Few (2-10); RBC Urine 0-1/HPF (0-5/HPF); Squamous Epithelial Cell Urine 1-5 /HPF (0-5/HPF); WBC Urine 0-1/HPF (0-5/HPF)
[2022-08-15 18:11] LABS: Culture Indicated Urine Cult Not Indicated
[2022-08-15 18:17] VITALS: BP 117/63; PULSE 79; RESP 18; O2SAT 97
--- NOTE | 2022-08-15 18:18 | DI.CT.S_ITS ---
PROCEDURE: CT ANGIO CHEST PE PROTOCOL INDICATIONS: elevated D Dimer, CP SOB TECHNIQUE: After the administration of intravenous contrast, 2 mm thick sections acquired from the pulmonary apices to the posterior costophrenic angles. 3-dimensional maximum intensity projection (MIP) coronal and sagittal reformats were then acquired through the thorax. For radiation dose reduction, the following was used: automated exposure control, adjustment of mA and/or kV according to patient size. COMPARISON: None. FINDINGS: Image quality: Excellent. Pulmonary arteries: Pulmonary arteries are normal in size, and demonstrate no intraluminal filling defects to suggest central pulmonary embolism. Lungs and pleura: Lungs are clear. No pleural effusions or pneumothorax. Central and peripheral airways are patent. Mediastinum: Heart size is normal, without pericardial effusion. No mediastinal or hilar adenopathy. Thoracic aorta is normal in caliber and enhancement. Esophagus is normal in caliber, without hiatal hernia. Bones and chest wall: No suspicious bony lesions. Ribs and thoracic spine appear intact throughout. Thyroid gland has a normal CT appearance.. No axillary or supraclavicular adenopathy. Abdomen: Visualized upper abdominal solid organs appear normal in the early arterial phase of enhancement. IMPRESSION: 1. No pulmonary embolus. 2. No acute pulmonary parenchymal disease. Dictated by: Serene Lou M.D. on 08/15/2022 at 20:01 Approved by: Serene Lou M.D. on 08/15/2022 at 20:04
[2022-08-15] MEDS: NITROFURANTOIN ER 100 MG CAPSULE PO (19:01)
[2022-08-15] MEDS: SODIUM CHLORIDE 0.9% 1,000 ML 1000 ML IV (19:06)
[2022-08-15 19:30] LABS: Influenza A - CEPHEID Flu A NEGATIVE (NEGATIVE); Influenza B - CEPHEID Flu B NEGATIVE (NEGATIVE); Respiratory Syncytial Virus Negative (Negative)
[2022-08-15 19:37] LABS: COVID-19 CEPHEID 4-PLEX PCR Negative (Negative)
[2022-08-15] MEDS: HYDROCODONE/ACET 5/325 PREPACK 1 BOTTLE MISC (20:41)
[2022-08-15 20:45] VITALS: BP 109/62; PULSE 67; RESP 16; O2SAT 97
[2022-08-18 13:36] LABS: Interpretation Negative (Negative)
== END 2022-08-15 20:47 | disposition home or self-care (01) ==
PROVIDERS: Emergency Medicine; Emergency Provider Nurse Practitioner Critical Care Medicine
DX: K80.20 Calculus of gallbladder without cholecystitis without obstruction (principal); N39.0 Urinary tract infection, site not specified; R07.89 Other chest pain; R06.02 Shortness of breath; R79.89 Other specified abnormal findings of blood chemistry; Z20.822 Contact with and (suspected) exposure to COVID-19
CPT/HCPCS: 0241U; 36415; 71045; 71275; 76705; 80053; 81015; 82550; 83013; 83690; 83735; 84484; 85025; 85379; 85610; 85730; 86140; 93005; 96361; 96374; 96375; 99284; C9113; J1170; J1885; J2405

== ENCOUNTER 2022-09-10 06:29 | Day surgery (SDC) | payer MEDICAID, OTHER, SELFPAY ==
[2022-09-10] VITALS (11 sets, daily range): BP systolic 90–108; BP diastolic 46–69; PULSE 56–70; RESP 12–27; TEMP 36–36.4; O2SAT 96–100; BMI 33.3
--- NOTE | 2022-09-10 | PATH_ITS ---
[facility] Accession Number: [id number] No. of containers..02 Tissue . 01 Material submitted: . PART A: gallbladder - GALLBLADDER PART B: fallopian tube - RIGHT FALLOPIAN TUBE . 01 Diagnosis: A. Gallbladder, Cholecystectomy: Chronic cholecystitis with cholelithiasis. Cholesterolosis. Negative for dysplasia or malignancy. . B. Right Fallopian Tube, Sterilization: One complete segment of fallopian tube. Multiple paratubal cysts. No evidence of neoplasm or malignancy. [facility] 09/15/2022 1605 Local . 01 Electronically signed: . Sari Encarnacion MD, Pathologist NPI- [id number] . 01 Gross description: . A. Received in formalin labeled with the patient's name, , and gallbladder, and consists of a disrupted gallbladder measuring 5.9 x 2.2 x 1.7 cm with a full-thickness defect on the hepatic surface measuring 0.3 cm in greatest dimension. The cystic duct is received closed with a clamp, is inked blue, and no pericystic lymph node is identified. The lumen contains a moderate amount of green viscous bile and multiple yellow bossellated calculi measuring up to 0.3 cm in greatest dimension, grossly obstructing the cystic duct. The mucosa is green and velvety with yellow areas of discoloration and no polyps or lesions identified. The godinez average 0.2 cm thick. [employer] sections to include the cystic duct margin and full-thickness sections are submitted in cassette A1. B. Received in formalin labeled with the patient's name, , and fallopian tube right, and consists of a single fimbriated fallopian tube measuring 8.2 cm in length by 0.5 cm in diameter with lo smooth serosa and multiple cystic structures measuring up to 0.9 cm in greatest dimension filled with clear serous fluid. Sectioning reveals an unremarkable stellate lumen. [employer] sections to include one-half of the bisected fimbriae and cross sections are submitted in cassette B1. ([id number]) /FRR 09/12/2022 2228 Local . 01 Pathologist provided ICD-10: Z30.2, K80.50 . 01 CPT . 739044, 943560 Specimen Comment: A courtesy copy of this report has been sent to [phone] Performed at: 01 [facility] [address] [place] [address], [place], [place] [id number] MD Maximo Rodriguez MD Phone: [phone]
[2022-09-10] MEDS: LACTATED RINGERS 1,000 ML 100 ML IV ×2 (06:45→08:42)
--- NOTE | 2022-09-10 07:34 | PM.PREOP ---
Pre-operative Note Interval Note History & Physical reviewed/Exam performed by Physician: Yes Changes to H&P: No
--- NOTE | 2022-09-10 07:40 | PM.GYNHP.1 ---
History of Present Illness History of Present Illness Reason for admission: other (Desires permanent sterilization) Narrative: Nohemy Barrett is a 37 year old female 6 para 4 who presents for a laparoscopic removal of remaining tube at the same time as laparoscopic removal of gallbladder. [facility] Medical History Anemia (~2017) Asthma (~1999) Surgical History Anesthesia Ectopic (~2009) Status post appendectomy (~2011) Status post tonsillectomy and adenoidectomy [place] teeth extracted Family History Father Diabetes mellitus Mother Hypertension Cleft palate Family/Other Epilepsy Family/Other Cleft lip and palate Social History marital status: household members: spouse, family and children lives independently: Yes housing: house pets and animals: Yes (2 dogs) education level: high school occupational status: unemployed current occupational exposures/hazards: No special shira needs: No seatbelt use: always helmet use: Yes water heater temp set < 120 deg: No (will check) working smoke detector in home: Yes fire extinguisher in home: Yes carbon monox detector in home: Yes firearms in home: No do you feel safe at home: Yes Smoking Status: Former smoker Tobacco: How many years used: 3 second hand exposure: No (mother and gdqzuq-xc-adt smoke, but only outdoors and not near pt) alcohol intake: never substance use type: does not use during the past year weight has: other well-balanced diet: daily or most days daily servings fruits/ve-4 caffeine: Yes Type(s) of exercise: walking Meds Home Medications and Allergies Home Medications Medication Instructions Recorded Confirmed Type prenat.vits,chelsie,kac-wzxm-trlvo 1 tab PO DAILY 10/07/21 09/10/22 History Allergies Allergy/AdvReac Type Severity Reaction Status Date / Time bee venom protein (honey bee) Allergy Severe Anaphylaxis Verified 09/10/22 06:43 Latex, Natural Rubber Allergy Intermediate Hives Verified 09/10/22 06:43 Penicillins Allergy Intermediate Hives Verified 09/10/22 06:43 Exam Vital Signs (past 8 hours): - 09/10/22 07:01 Temperature 97.3 F L Pulse Rate 70 Respiratory Rate 18 Blood Pressure 108/69 Pulse Oximetry 98 Oxygen Delivery Method Room Air Oxygen Delivery Method Room Air Narrative Exam Narrative: HEENT: No thyromegaly, no anterior cervical or supraclavicular lymphadenopathy. Lungs:Clear to auscultation bilaterally, no wheezes. Cardiovascular: Regular rate and rhythm, no murmurs, rubs, or gallops. Abdomen: Well-healed laparoscopy scars. No hepatosplenomegaly. No masses palpable. External genitalia: Normal Vagina: Normal Cervix: Normal Bimanual exam: 6 Week size uterus. Mobile. Extremities: No edema Assessment & Plan Assessment & Plan narrative: Assessment: 37-year-old 6 para 4 who desires permanent sterilization Patient has had 1 tube removed but she is not sure which one, unable to access pathology or operative report from 2009 to confirm. Plan: Laparoscopic removal of remaining tube The risks, benefits, and alternatives to the procedure were explained to the patient. The risks including bleeding, infection, injury to the bowel, bladder, or ureters. She understands these risks and agrees to proceed. A full par Q was held and consent form was signed. Time Spent With Patient Time with patient: less than 30 minutes
--- NOTE | 2022-09-10 07:42 | PM.PREOP ---
Pre-operative Note COVID-19 Criteria for continued procedure: Non-surgical alternatives not available or appropriate per current SOC Interval Note History & Physical reviewed/Exam performed by Physician: Yes Changes to H&P: No H&P completed within 30 days and has changed as indicated here:: 09/10/22
[2022-09-10] MEDS: CLINDAMYCIN 900 MG/50 ML PIGGYBACK 50 MG IV (08:04)
--- NOTE | 2022-09-10 08:19 | SUR.OPER ---
Lithotomy on padded OR bed. [place] Pad Positioner under torso. Head on pillow, left arm padded and tucked at side, right arm secured onto armboard. Legs secured in padded yellow fins stirrups.
[2022-09-10] MEDS: BUPIVACAINE 0.25% (PF) VIAL 30 ML INJ (08:27)
--- NOTE | 2022-09-10 08:47 | PM.OP.1 ---
Operative Date/Time/Diagnoses Date of procedure: 09/10/22 Time of procedure: 08:47 Pre-op diagnosis: Biliary colic Post-op diagnosis: same Procedure & Clinicians Procedure: Laparoscopic cholecystectomy Same procedure as scheduled: Yes Indications: 37-year-old woman symptoms and radiographic findings consistent biliary colic Surgeon: Hector Mireles Click Yes if Unassisted: Yes Anesthesia Type: General Operative Notes Findings: Critical view of safety established. No evidence of acute cholecystitis. Estimated Blood Loss (mL): 20 Procedure in detail: The patient was placed supine on the table and bilateral lower extremity compression devices were applied. Anesthesia was induced they were intubated with an endotracheal tube and received 2g of Ancef. A time-out was performed. They were prepped and draped in sterile fashion. An infraumbilical incision was made. The fascia was elevated incised and the abdomen was entered atraumatically. A blunt tip 12mm balloon trocar was then inserted, pneumoperitoneum was established and inspection of the abdomen demonstrated no evidence of injury. They were placed head up and right side up and then a 11 mm port was placed high in the epigastrium and two 5mm in the right upper quadrant. The gallbladder was grasped by the fundus and retracted over the liver and retracted laterally by the infundibulum. Using electrocautery the lateral plane between the gallbladder and the liver was opened towards the fundus. The gallbladder was then retracted laterally and the medial plane was developed in the same manner. With the gallbladder mobilized the bottom of the cystic plate was visualized. The hepatocystic triangle was meticulosly skeletonized with blunt dissection of fat and fibrous tissue from both the front and the back. Only two structures were then clearly seen entering the gallbladder the cystic duct and the cystic artery. With the critical view of safety fully established the cystic duct was clipped twice proximally and once distally using the 10 mm Weck hemoclip applied under direct visualization and then sharply divided. The cystic artery was divided in the same fashion. The gallbladder was removed from the liver bed using electro cautery. The liver bed was then inspected for hemostasis and this was achieved. The abdomen was irrigated with sterile saline and inspection was made that showed the clips in good position. The specimen was removed using Endo-Catch. Dr. Hernandes then proceeded with the salpingectomy and closure Complications: none Post-operative Condition: stable Disposition: same day surgery
[2022-09-10] MEDS: KETOROLAC 30 MG/ML VIAL IV (09:44)
[2022-09-10] MEDS: OXYCODONE IR 5 MG TABLET PO (09:56)
[2022-09-10] MEDS: HYDROMORPHONE 2 MG INJ IV (10:17)
--- NOTE | 2022-09-10 11:12 | SUR.PHASEII ---
RN called patients spouse to update him on delay. Patient requesting more time to rest before getting dressed. Shes rating pain 3/10.
--- NOTE | 2022-09-10 12:36 | SUR.PHASEII ---
Patient is sitting up and now feeling like she can get dressed. Rating pain 3-4/10 and denies N/V.
[2022-09-10] MEDS: ONDANSETRON 4 MG/2 ML INJ IV (12:41)
--- NOTE | 2022-09-10 12:52 | SUR.PHASEII ---
Patient became nauseated when getting dressed. Medicated with Zofran per order. Patient monitored an additional 20 minutes after medication given.
--- NOTE | 2022-09-22 19:24 | PM.GYNOP.1 ---
Operative Date/Time/Diagnoses Date of procedure: 09/10/22 Time of procedure: 16:00 Pre-op diagnosis: Desires permanent sterilization Post-op diagnosis: same Procedure & Clinicians Procedure: Procedures Operation Date: 09/10/22 07:45 Actual Procedure Side Surgeon p Laparoscopic Cholecystectomy Hector Mireles MD s Laparoscopic Salpingectomy Evette Hernandes MD Indications: Desires permanent sterilization Acute cholecystitis Surgeon: Evette Hernandes Anesthesia Type: General and Local Operative Notes Findings: 8 week size anteverted uterus Normal tubes and ovaries Closure Type: primary Specimen(s): left tube and right tube Estimated blood loss (mL): 5 Blood products transfused: none Procedure in detail: The patient was opened per operative report by Dr. Perry. Patient was under general anesthesia. 4 cm left lateral to the umbilicus, 5 cc of 0.5% Marcaine with epinephrine were injected. A 5 mm incision was made. A 5 mm trocar was placed under direct visualization. The right tube was grasped with an atraumatic grasper. Using the power seal, the mesosalpinx was cauterized and cut on the right side all the way down to the cornua of the uterus. The tube was amputated at the cornua. The tube was removed through the right lateral trocar. This was repeated on the patient's left tube and the left tube removed through the left lateral trocar. Hemostasis was achieved. The instruments were removed from the abdomen. The CO2 was allowed to escape. The umbilical incision was closed on the fascia with 0 Vicryl. The subcutaneous layer was closed with 2 simple interrupted sutures with 3-0 Vicryl. All of the incisions were closed with 4-0 Monocryl in a subcuticular fashion. Steri-Strips and Allevyn dressings were placed. Sponge, lap, and instrument counts were correct x2. The patient tolerated the procedure well, and was taken to PACU in stable condition. Complications: none Post-operative Condition: stable Disposition: PACU Plan for aftercare: Home per General Surgery
== END 2022-09-10 13:18 | disposition home or self-care (01) ==
PROVIDERS: Surgery; Referring Provider Obstetrics & Gynecology; Visit Provider Obstetrics & Gynecology
PROC: 0FT44ZZ Resection of Gallbladder, Percutaneous Endoscopic Approach (ICD-10-PCS; CPT 47562; principal; 2022-09-10 07:45)
PROC: (CPT 58661; 2022-09-10 07:45)
DX: Z30.2 Encounter for sterilization (principal); K80.10 Calculus of gallbladder with chronic cholecystitis without obstruction; N83.8 Other noninflammatory disorders of ovary, fallopian tube and broad ligament
CPT/HCPCS: 58661; 47562; 81025; 82962; J1100; J1170; J1885; J2250; J2405; J2704; J3010; J3490